=== PATIENT | female | born 1975 | race Hispanic/Latino ===

== ENCOUNTER 2018-07-26 16:21 | Emergency (ER) | payer SELFPAY ==
[2018-07-26 16:53] LABS: Hemoglobin 7.5 g/dL (12.0-16.0); Mean Corpuscular HGB CONC 33.8 g/dL (32.0-36.0); Mean Corpuscular Hemoglobin 31.4 pg (27.0-31.0); Mean Platelet Volume 6.4 fL (7.4-10.4); Platelet Count 447 thou/uL (130-400); RBC Distribution Width 12.4 % (11.5-14.5); Red Blood Cell (RBC) Count 2.38 mill/uL (4.20-5.40); White Blood Cell (WBC) Count 14.5 thou/uL (4.8-10.8)
[2018-07-26 17:07] LABS: #Eosinphils 0.1 thou/uL (0.0-0.7); #Monocytes 0.7 thou/uL (0.11-0.59); #Neutrophils 10.7 thou/uL (1.40-6.50); %Basophils 0.1 % (0.0-1.0); %Eosinophils 0.6 % (0.0-10.0); %Lymphocytes 20.8 % (21.0-51.0); %Monocytes 4.5 % (0.0-10.0); %Neutrophils 74.1 % (42.0-75.0); MDiff Complete? YES; PLT Morphology Comment Appears Increased; Polychromasia MODERATE = 3-4 cells (100X) (0-2/hpf)
[2018-07-26 17:17] LABS: ALT (SGPT) 15 U/L (8-55); AST (SGOT) 14 U/L (5-34); Albumin 4.2 g/dL (3.5-5.0); Alkaline Phosphatase 79 U/L (40-150); Anion Gap 11 mmol/L (10-20); BUN (Urea Nitrogen) 14 mg/dL (7.0-18.7); Bilirubin, Total 0.6 mg/dL (0.2-1.2); Calc. Creatinine Clearance 0 mL/min (70-130); Calcium 9.1 mg/dL (7.8-10.44); Carbon Dioxide 23 mmol/L (22-29); Chloride 105 mmol/L (98-107); Estimated GFR-MDRD 78; Globulin 3.3 g/dL (2.4-3.5); Glucose 256 mg/dL (70-105); Potassium 3.8 mmol/L (3.5-5.1); Protein, Total 7.5 g/dL (6.0-8.3); Sodium 135 mmol/L (136-145)
[2018-07-26 18:44] LABS: Acetaminophen Less than 6.0 mcg/mL (10.0-30.0); Alcohol Less than 10 mg/dL (Less than 10); Salicylate Less than 8.0 mg/dL (15.0-30.0)
[2018-07-26 18:55] LABS: Bilirubin Negative (Negative); Blood, Urine Large (Negative); Clarity CLOUDY (Clear); Glucose, Urine (Dipstick) >=1000 mg/dL (Negative); Leukocyte Small (Negative); Nitrite Negative (Negative); Pregnancy Test - Urine (BHCG) Negative (Negative); Pregu Control Bar Appear? YES (CONTROL BAR); Protein, Urine (Dipstick) Trace mg/dL (Neg-Trace); Specific Gravity 1.031 (1.002-1.036); Specific Gravity, Urine 1.031 (1.002-1.036); pH, Urine 5.5 (5.0-9.0)
[2018-07-26 18:58] LABS: Bacteria/HPF 2+ HPF (None Seen); Squamous Epithelial None Seen HPF (0-3)
[2018-07-26 19:01] LABS: Pathc Cast-AUWi Flag 5.08 (0-2.49); Pregu Control Background? CLEAR/WHITE (CLR/WHITE); Yeast-AUWi Flag 740.2 (0-25.0)
[2018-07-26 19:04] LABS: Amphetamine Not Detected (NotDetected); Barbiturates Screen Not Detected (NotDetected); Benzodiazepine Screen Not Detected (NotDetected); Cocaine Metabolite Screen Not Detected (NotDetected); Medtox Control Line Valid? VALID (VALID); Medtox Reader # READER 1; Methadone Not Detected (NotDetected); Methamphetamine Not Detected (NotDetected); Opiate Screen Not Detected (NotDetected); Oxycodone Screen Not Detected (NotDetected); Phencyclidine (PCP) Not Detected (NotDetected); THC/Cannabinoid Screen Detected (NotDetected); Tricyclic Screen Not Detected (NotDetected)
[2018-07-26 19:14] LABS: Hyaline Casts/LPF 0-3 HYALINE CAST LPF (0-3 Hyaline); Other Casts/LPF None Seen LPF (0-3 Hyaline); Yeast-All Forms 4+ HPF (None Seen)
--- NOTE | 2018-07-26 19:52 | ULT ---
PELVIC SONOGRAM TRANSABDOMINAL AND TRANSVAGINAL IMAGING WITH DUPLEX EVALUATION 07/26/18 HISTORY: Dysmenorrhea. Pelvic pain. FINDINGS: The urinary bladder is decompressed. The uterus has a heterogeneous echotexture and is 7.1 cm. Slight expansion of the lower uterine segment by a small cluster of cysts. No free fluid is apparent within the pelvis. Right ovary is 2.8 cm. A dominant 2.9 cm cystic structure at the right ovary contains an eccentric ro unded component. Left ovary is 2.7 cm. Good color and spectral doppler flow within each ovary. IMPRESSION: Small cluster of cystic fluid within the lower uterine segment. No evidence of intrauterine gestation . Complex cyst right ovary, 2.9 cm. This could represent a complex follicle. Clinical correlation regar ding other findings of ectopic is required. Please consider continued clinical and sonograp hic followup. POS: LUISA
[2018-07-26] MEDS ORDERED: cefTRIAXone\\ROCEPHIN 1 GM VIAL ONE (19:58)
[2018-07-26] MEDS ORDERED: Ondansetron HCl/PF 4 MG/2 ML Vial ONE (20:48)
[2018-07-26] MEDS ORDERED: Tranexamic Acid 650 MG TAB PO SCH (23:00)
[2018-07-27 06:02] LABS: #Eosinphils 0.1 thou/uL (0.0-0.7); #Lymphocytes 2.7 thou/uL (1.20-3.40); #Monocytes 0.7 thou/uL (0.11-0.59); %Basophils 0.3 % (0.0-1.0); %Lymphocytes 25.8 % (21.0-51.0); %Monocytes 6.5 % (0.0-10.0); %Neutrophils 66.4 % (42.0-75.0); Hemoglobin 9.2 g/dL (12.0-16.0); Mean Corpuscular Hemoglobin 31.4 pg (27.0-31.0); Mean Corpuscular Volume 92.3 fL (78.0-98.0); Mean Platelet Volume 7.1 fL (7.4-10.4); Platelet Count 257 thou/uL (130-400); RBC Distribution Width 12.8 % (11.5-14.5); Red Blood Cell (RBC) Count 2.92 mill/uL (4.20-5.40); White Blood Cell (WBC) Count 10.6 thou/uL (4.8-10.8)
[2018-07-27] MEDS ORDERED: Tranexamic Acid 650 MG TAB PO SCH ×2 (07:15→21:00)
[2018-07-27] MEDS ORDERED: Ondansetron ODT 4 MG TAB ONE (18:49)
[2018-07-27 19:01] LABS: Hemoglobin 10.4 g/dL (12.0-16.0); Mean Corpuscular HGB CONC 34.4 g/dL (32.0-36.0); Mean Corpuscular Hemoglobin 31.4 pg (27.0-31.0); Mean Corpuscular Volume 91.1 fL (78.0-98.0); Mean Platelet Volume 6.3 fL (7.4-10.4); Platelet Count 380 thou/uL (130-400); RBC Distribution Width 12.8 % (11.5-14.5); Red Blood Cell (RBC) Count 3.33 mill/uL (4.20-5.40)
[2018-07-27 19:21] LABS: Band 2 % (5-11); Basophilic Stippling SLIGHT = 1-2 cells (100X) (None Seen); Lymphocytes 21 % (21-51); MDiff Complete? YES; Monocytes 6 % (0-10); Neutrophil 70 % (42-75); Nucleated RBC 1 % (0); Ovalocytes SLIGHT = 2-5 cells (100X) (0-1/hpf); PLT Morphology Comment Appears Adequate; Polychromasia MODERATE = 3-4 cells (100X) (0-2/hpf); White Blood Cell (WBC) Count 9.2 thou/uL (4.8-10.8)
== END 2018-07-26 19:43 | disposition home or self-care (01) ==
LOC: ERS 16:21
DX: N93.8 Other specified abnormal uterine and vaginal bleeding (principal); R45.851 Suicidal ideations; N39.0 Urinary tract infection, site not specified; E11.9 Type 2 diabetes mellitus without complications; F32.9 Major depressive disorder, single episode, unspecified; F41.9 Anxiety disorder, unspecified
CPT/HCPCS: 36415; 36430; 76856; 80053; 80306; 80307; 81003; 81015; 81025; 84443; 85025; 86850; 86900; 86901; 87077; 87086; 96361; 96365; 96375; J0696; J2405; P9016

== ENCOUNTER 2018-10-25 04:11 | Inpatient (IN) | payer OTHER, SELFPAY ==
[2018-10-25] MEDS ORDERED: HYDROcodone/Acetaminophen 5/325 mg Tablet ONE (05:12)
[2018-10-25 05:15] LABS: ALT (SGPT) 11 U/L (8-55); AST (SGOT) 21 U/L (5-34); Albumin 3.9 g/dL (3.5-5.0); Alkaline Phosphatase 144 U/L (40-150); Anion Gap 19 mmol/L (10-20); BUN (Urea Nitrogen) 21 mg/dL (7.0-18.7); Bilirubin, Total 0.8 mg/dL (0.2-1.2); Calc. Creatinine Clearance 0 mL/min (70-130); Calcium 9.8 mg/dL (7.8-10.44); Carbon Dioxide 19 mmol/L (22-29); Chloride 97 mmol/L (98-107); Estimated GFR-MDRD 76; Globulin 5.5 g/dL (2.4-3.5); Glucose 195 mg/dL (70-105); Potassium 3.9 mmol/L (3.5-5.1); Protein, Total 9.4 g/dL (6.0-8.3); Sodium 131 mmol/L (136-145)
[2018-10-25 05:23] LABS: #Eosinphils 0.1 thou/uL (0.0-0.7); #Monocytes 0.8 thou/uL (0.11-0.59); #Neutrophils 13.9 thou/uL (1.40-6.50); %Basophils 0.1 % (0.0-1.0); %Eosinophils 0.6 % (0.0-10.0); %Lymphocytes 11.8 % (21.0-51.0); %Monocytes 4.7 % (0.0-10.0); %Neutrophils 82.8 % (42.0-75.0); Hemoglobin 11.1 g/dL (12.0-16.0); MDiff Complete? YES; Mean Corpuscular HGB CONC 30.9 g/dL (32.0-36.0); Mean Corpuscular Hemoglobin 22.5 pg (27.0-31.0); Mean Corpuscular Volume 72.7 fL (78.0-98.0); Mean Platelet Volume 8.1 fL (7.4-10.4); Microcytosis SLIGHT = 6-15 cells (100X) (0-5/hpf); Platelet Count 465 thou/uL (130-400); Platelet Morphology Comment Appears Adequate; RBC Distribution Width 17.9 % (11.5-14.5); Red Blood Cell (RBC) Count 4.93 mill/uL (4.20-5.40); White Blood Cell (WBC) Count 16.8 thou/uL (4.8-10.8)
--- NOTE | 2018-10-25 06:19 | PDOC.FPRHP ---
- History of Present Illness Chief Complaint: L foot wound/pain History of Present Illness: 43 yo F with PMH T2DM and previous diabetic foot wounds presents for L foot wound with purulent drainage. 1 month history of wound, pt has been applying peroxide for wound care. 5 days ago, foot was more swollen and rubbed against her shoe causing the current wounds. Has purulent drainage, surrounding erythema. Foot is painful and pt has done minimal weight bearing. Denies fever/ chills, SOB, CP. ED Course: Vershire, vanc, 1L IVF - Allergies/Adverse Reactions Allergies Allergy/AdvReac Type Severity Reaction Status Date / Time No Known Allergies Allergy Verified 03/06/14 02:42 - Home Medications Medication Instructions Recorded Confirmed Type No Known 10/25/18 10/25/18 History - History PMHx: T2DM, anxiety/depression PSHx: tonsillectomy FHx: grandpa-DM, CAD, CKD. grandmother-anemia. Social: Denies tobacco and alcohol use. 3 years smoker as teenager. Current marijuana user. - Review of Systems General: denies: fever/chills ENT: denies: nasal congestion Respiratory: denies: cough, shortness of breath Cardiovascular: denies: chest pain, palpitation - Vital signs BP: 104/71 HR: 91 RR: 18 Tmax: 98.6 Pox: 99% on RA Wt: 72 kg - Physical Exam Constitutional: awake, alert and oriented, well developed HEENT: normocephalic and atraumatic, MMM, oropharynx clear Heart: RRR, normal S1/S2 Lungs: CTAB, no respiratory distress, no rales/rhonchi Abdomen: soft, non-tender, bowel sounds present Neurological: no focal deficit Skin: good turgor, capillary refill <2 seconds -Skin: L foot erythema borders marked with pen, 2 - 1cm ulcers with white/yellow purulent drainage Heme/Lymphatic: no unusual bruising or bleeding Psychiatric: normal mood and affect FMR H&P: Results - Labs Result Diagrams: 10/25/18 04:40 10/25/18 04:40 Lab results: WBC 16.8 thou/uL (4.8-10.8) H 10/25/18 04:40 Hgb 11.1 g/dL (12.0-16.0) L 10/25/18 04:40 Hct 35.9 % (36.0-47.0) L 10/25/18 04:40 MCV 72.7 fL (78.0-98.0) L 10/25/18 04:40 Plt Count 465 thou/uL (130-400) H 10/25/18 04:40 Neutrophils % 82.8 % (42.0-75.0) H 10/25/18 04:40 ESR Westergren 130 mm/hr (Less than 20) 10/25/18 04:40 Sodium 131 mmol/L (136-145) L 10/25/18 04:40 Potassium 3.9 mmol/L (3.5-5.1) 10/25/18 04:40 Chloride 97 mmol/L (98-107) L 10/25/18 04:40 Carbon Dioxide 19 mmol/L (22-29) L 10/25/18 04:40 BUN 21 mg/dL (7.0-18.7) H 10/25/18 04:40 Creatinine 0.83 mg/dL (0.6-1.1) 10/25/18 04:40 Glucose 195 mg/dL (70-105) H 10/25/18 04:40 Lactic Acid 1.5 mmol/L (0.5-2.2) 10/25/18 04:40 Calcium 9.8 mg/dL (7.8-10.44) 10/25/18 04:40 Total Bilirubin 0.8 mg/dL (0.2-1.2) 10/25/18 04:40 AST 21 U/L (5-34) 10/25/18 04:40 ALT 11 U/L (8-55) 10/25/18 04:40 Alkaline Phosphatase 144 U/L (40-150) 10/25/18 04:40 C-Reactive Protein 27.06 mg/dL (= or < 0.5) H 10/25/18 04:40 Serum Total Protein 9.4 g/dL (6.0-8.3) H 10/25/18 04:40 Albumin 3.9 g/dL (3.5-5.0) 10/25/18 04:40 FMR H&P: A/P - Problem List (1) Sepsis Current Visit: Yes Status: Acute Code(s): A41.9 - SEPSIS, UNSPECIFIED ORGANISM (2) Cellulitis Current Visit: Yes Status: Acute Code(s): L03.90 - CELLULITIS, UNSPECIFIED (3) Diabetic foot infection Current Visit: Yes Status: Acute Code(s): E11.628 - TYPE 2 DIABETES MELLITUS WITH OTHER SKIN COMPLICATIONS; L08.9 - LOCAL INFECTION OF THE SKIN AND SUBCUTANEOUS TISSUE, UNSP (4) Microcytic anemia Current Visit: Yes Status: Acute Code(s): D50.9 - IRON DEFICIENCY ANEMIA, UNSPECIFIED (5) Hyponatremia Current Visit: Yes Status: Acute Code(s): E87.1 - HYPO-OSMOLALITY AND HYPONATREMIA (6) Diabetes mellitus Current Visit: No Status: Acute Code(s): E11.9 - TYPE 2 DIABETES MELLITUS WITHOUT COMPLICATIONS - Plan 43 yo F with PMH T2DM and diabetic foot wounds presents with R foot osteomyelitis. Sepsis 2/2 purulent cellulitis of L diabetic foot wound with concern for ostoemyelitis -CRP and ESR elevated, initially tachycardic, afebrile -XR did not show obvious lytic lesions, official read pending -WBC 16 -Continue IV vanc, started in ED 10/25 -wound culture pending - ordered MRI to r/o osteo considering onset of purulence 5 days ago. Will consult specialists as necessary pending this result. - IVF @ 110 Hyponatremia, mild -Continue IVF and recheck BMP in am DM2 - not taking any meds at home - will check A1c Microcytic anemia - has history of heavy vaginal bleeding earlier this year requiring blood transfusions. However also has family hx anemia - orderd iron studies as well as retic and smear Anxiety/depression Diet: NPO Ppx: Lovenox Dispo: admit to inpatient medical floor FMR H&P: Upper Level - Pertinent history 43 y/o F w/ PMHx of DM presents for eval of L-foot wound w/ worsening pain and redness over the past 5 days. Reports hx of diabetic foot ulcers in the past. Reports purulent drainage. Has not been on any PO abx for this in the outpatient setting. In the ER patient received 1L NS, 1 Vershire, and IV Vancomycin. - Pertinent findings Vitals per Library Serials Assistant Note Pertinent PE findings include two approx.. 1 cm open wounds on dorsal aspect of L-foot just proximal to 4th digit w/ surrounding erythema and swelling to ankle WBC 16.8 Hgb 11.1 MCV 72.7 Na 131 Chl 97 CO2 19 BUN 21 Cr 0.83 CRP 27.06 ESR - 130 LA 1.5 Foot X-ray - No overt lytic lesions identified. NAD - Plan Date/Time: 10/25/18 0618 Madie Cortés MD, have evaluated this patient and agree with findings/plan as outlined by internet and e business project manager resident. Pertinent changes/additions are listed here. 43 y/o F w/: 1) Sepsis 2/2 Purulent Cellulitus vs Osteomyelitis - BCx and WCx obtained in the ER - Elevated CRP concerning for possible osteomyelitis. Cont. w/ IV vancomycin and will consider ID consult for likely need of termite inspector IV abx upon eventual discharge - W/ negative radiographs will obtain MRI for futher eval of possible osteo - Will plan to consult ortho if needed for bone bx to confirm dx and guide antimicrobial therapy - Margins of erythema marked in ED. Will consult wound care - LA WNL - Strict I/Os and cont. w/ IVF w/ LR - Will attempt to keep BG <180 in setting of acute infection 2) Microcytic Anemia - Will obtain iron studies and peripheral smear w/ retic count to further evaluate 3) Other chronic medical problems per internet and e business project manager note Addendum - Attending - Attending Attestation Date/Time: 10/25/18 0883 I personally evaluated the patient and discussed the management with Dr. Sam I agree with the History, Examination, Assessment and Plan documented above with any addition or exceptions noted below.43 yo non compliant diabetic female admitted with Sepsis secondary to diabetic left foot infection markedly swollen , erythematous and tender dorsalis pedal pulse palpable with active purulent drainage to dorsum proximal left great toe. Rec consider broader AB coverage will need wound and surgical consultation and agree with MRI to evaluate for osteomyelitis.
[2018-10-25] MEDS ORDERED: Ondansetron PF 4 MG/2 ML Vial IVP PRN (06:52)
[2018-10-25] MEDS ORDERED: Ondansetron ODT 4 MG TAB SL PRN (06:52)
[2018-10-25] MEDS ORDERED: Acetaminophen 325 MG TAB PO PRN (06:52)
[2018-10-25 07:36] VITALS: BMI 26.6
[2018-10-25] MEDS: Sodium Chloride 0.9% 1,000 ML IV SCH ×2 (08:02→12:34)
[2018-10-25] MEDS ORDERED: Ondansetron ODT 4 MG TAB PO PRN (08:03)
[2018-10-25 08:31] LABS: Reticulocyte Count 1.7 % (0.5-1.5)
[2018-10-25 08:32] LABS: Hemoglobin A1c 9.5 % (4.0-6.0)
--- NOTE | 2018-10-25 08:49 | RAD ---
LEFT FOOT 3 VIEWS: COMPARISON: 06/23/2013. HISTORY: Left foot swelling, erythema. Open wound with purulent drainage. FINDINGS: There is soft tissue swelling. There is an ulcer on the dorsum of the foot at the level of the mid f oot. There does not appear to be a destructive or erosive process involving the osseous structures o f the left foot. There is degenerative change along the 1st interphalangeal joint space and the 1st metatarsophalangeal joint space. The joint space height is preserved. However, there is osteophyte formation. Possible erosive changes involving the articular surface of the distal phalanx of the 1st digit. IMPRESSION: 1. Presumed degenerative changes involving the 1st digit as described above. 2. Soft tissue swelling along with ulceration involving the dorsal mid foot soft tissues. There is no radiographic evidence of osteomyelitis. If there is concern for cellulitis, further evaluation w ith MRI if clinically warranted. POS: LUISA
[2018-10-25 08:53] LABS: Iron 14 ug/dL (50-170); Iron Binding Capacity, Total 324 mcg/dL (265-497)
[2018-10-25 09:12] LABS: Hemoglobin 10.3 g/dL (12.0-16.0); Mean Corpuscular HGB CONC 29.4 g/dL (32.0-36.0); Mean Corpuscular Hemoglobin 21.7 pg (27.0-31.0); Mean Corpuscular Volume 73.7 fL (78.0-98.0); Mean Platelet Volume 7.9 fL (7.4-10.4); Platelet Count 438 thou/uL (130-400); RBC Distribution Width 17.7 % (11.5-14.5); Red Blood Cell (RBC) Count 4.76 mill/uL (4.20-5.40); White Blood Cell (WBC) Count 14.6 thou/uL (4.8-10.8)
[2018-10-25 09:32] LABS: Band 2 % (5-11); Eosinophils 1 % (0-10); Hypochromia SLIGHT = 6-15 cells (100X) (0-5/hpf); Lymphocytes 22 % (21-51); MDiff Complete? YES; Microcytosis SLIGHT = 6-15 cells (100X) (0-5/hpf); Monocytes 3 % (0-10); Neutrophil 69 % (42-75); Platelet Morphology Comment Appears Increased; Polychromasia SLIGHT = 2-3 cells (100X) (0-2/hpf); Reactive Lymphocytes 2 % (0-10); Rouleaux Formation SLIGHT = 1-5 cells (100X) (None Seen)
[2018-10-25] MEDS: Lactated Ringer's 1,000 ML IV SCH ×2 (09:32→20:18)
[2018-10-25] MEDS: Enoxaparin Sodium 40 MG/0.4 ML SYRINGE SC SCH (09:33)
[2018-10-25] MEDS: Ibuprofen 600 MG TAB PO SCH ×3 (09:33→20:06)
[2018-10-25] MEDS ORDERED: Gadobenate Dimeglumine 529 MG/1 ML (20ML VIAL) ONE (11:48)
[2018-10-25] MEDS ORDERED: Dextrose 50% Abboject 50 ML SYRINGE SLOW IVP PRN (13:30)
[2018-10-25] MEDS ORDERED: HumaLOG 300 UNITS/3 ML VIAL SC PRN ×2 (13:30)
[2018-10-25] MEDS ORDERED: Dextrose 5% in Water 1,000 ML IV PRN (13:30)
[2018-10-25] MEDS ORDERED: cefTRIAXone\\ROCEPHIN 1 GM in Sodium Chloride 0.9% 100 ML IVPB SCH (14:00)
--- NOTE | 2018-10-25 15:42 | MRI ---
MRI OF THE LEFT FOOT PERFORMED WITH AND WITHOUT CONTRAST ENHANCEMENT: History: Patient presents with left foot swelling and erythema with open wound with purulent drainage . Comparison: Plain film examination, 10-25-18. FINDINGS: There is marked soft tissue edema changes on the dorsum of the foot. There is an ulcer of wound seen on the dorsal side near the first metatarsal phalangeal joint with more pronounced edema change in th is region with a tiny cavity present which appears to point to drainage site. The marrow signal hannon e within the metatarsal is normal. There is some minimal increased signal change on the STIR sequence associated with the proximal phalanx which also shows minimal enhancement. Incidental note is made of a 5-6 mm exophytic area along the plantar surface of the flexor halitus lo ngus tendon, just proximal to the sesamoid level. This is not felt to be related to acute process. It may represent some type of chronic change possibly related to old tenosynovitis change or some type of synovial cyst, not felt to be of acute significance. IMPRESSION: Marked edema changes with an open wound on the dorsum of the foot. This is near the first metatarsal phalangeal joint with some minimal fluid density seen tracking superficially dorsal to the first meta tarsal without any definite abscess collection. This is probably the underlying etiology of the drain age. There is some edema change and enhancement associated with the proximal phalanx of the great toe . I do not see any bony destructive change although this could indicate early osteomyelitis. I would favor that this just represents some reactive bony change. There is some similar but very minimal delfino nges also seen in the first metatarsal neck, more on the plantar side. Again, more likely favored to be reactive in nature. POS: LUISA
[2018-10-25] MEDS ORDERED: Heparin 1,000 UNITS/ML VIAL ONE ×2 (16:16→19:45)
[2018-10-25] MEDS: Vancomycin HCl 1 GM in Premix Bag 1 BAG IVPB SCH (16:49)
[2018-10-25] MEDS: Ferrous Sulfate 325 MG TAB PO SCH (16:50)
[2018-10-25] MEDS: cefTRIAXone\\ROCEPHIN 1 GM in Sodium Chloride 0.9% 100 ML IVPB SCH (20:08)
[2018-10-25] MEDS: Acetaminophen 325 MG TAB PO PRN (21:51)
[2018-10-26] MEDS: traMADol HCl 50 MG TAB PO PRN (00:15)
[2018-10-26] MEDS ORDERED: HYDROcodone/Acetaminophen 5/325 mg Tablet PO SCH (03:15)
[2018-10-26] MEDS: Ibuprofen 600 MG TAB PO SCH ×4 (03:21→20:10)
[2018-10-26] MEDS: Vancomycin HCl 1 GM in Premix Bag 1 BAG IVPB SCH ×2 (05:21→18:32)
[2018-10-26 07:13] LABS: #Basophils 0.1 thou/uL (0.0-0.2); #Eosinphils 0.2 thou/uL (0.0-0.7); #Lymphocytes 1.1 thou/uL (1.20-3.40); #Monocytes 1.1 thou/uL (0.11-0.59); #Neutrophils 11.8 thou/uL (1.40-6.50); %Basophils 0.8 % (0.0-1.0); %Eosinophils 1.2 % (0.0-10.0); %Lymphocytes 7.7 % (21.0-51.0); %Monocytes 7.6 % (0.0-10.0); %Neutrophils 82.8 % (42.0-75.0); Mean Corpuscular HGB CONC 30.5 g/dL (32.0-36.0); Mean Corpuscular Hemoglobin 22.3 pg (27.0-31.0); Mean Corpuscular Volume 73.1 fL (78.0-98.0); Mean Platelet Volume 8.1 fL (7.4-10.4); Platelet Count 344 thou/uL (130-400); RBC Distribution Width 17.5 % (11.5-14.5); Red Blood Cell (RBC) Count 4.01 mill/uL (4.20-5.40); White Blood Cell (WBC) Count 14.3 thou/uL (4.8-10.8)
[2018-10-26 07:29] LABS: Anion Gap 15 mmol/L (10-20); BUN (Urea Nitrogen) 19 mg/dL (7.0-18.7); Calc. Creatinine Clearance 110 mL/min (70-130); Calcium 8.9 mg/dL (7.8-10.44); Carbon Dioxide 19 mmol/L (22-29); Chloride 103 mmol/L (98-107); Estimated GFR-MDRD 85; Glucose 190 mg/dL (70-105); Potassium 3.8 mmol/L (3.5-5.1); Sodium 133 mmol/L (136-145)
[2018-10-26] MEDS ORDERED: metFORMIN XR 500 MG TAB PO SCH (08:00)
--- NOTE | 2018-10-26 08:14 | PDOC.FM ---
- Subjective Subjective: CC: Foot pain HPI: Still waiting to see podiatry. Reports foot pain overnight but states swelling is better. No other concerns. - Objective Vital Signs & Weight: Vital Signs (12 hours) Temp Pulse Resp BP Pulse Ox 10/26/18 04:00 98.7 F 97 20 105/67 100 10/26/18 00:00 98.8 F 84 20 101/65 100 Weight Admit Weight 70.307 kg Weight 70.307 kg Result Diagrams: 10/26/18 06:27 10/26/18 06:27 Radiology Reviewed by me: Yes (superficial swelling left foot. ) Phys Exam - Physical Examination Constitutional: NAD HEENT: moist MMs, sclera anicteric Respiratory: no wheezing, clear to auscultation bilateral Cardiovascular: RRR, no significant murmur Gastrointestinal: soft, non-tender Musculoskeletal: no edema Neurological: non-focal, moves all 4 limbs Psychiatric: normal affect, A&O x 3 Skin: cap refill <2 seconds Deviation from normal: erythema inside samuel. Purulent drainage from both ulcers left foot. Dx/Plan (1) Osteomyelitis Code(s): M86.9 - OSTEOMYELITIS, UNSPECIFIED Status: Acute (2) Diabetic foot infection Code(s): E11.628 - TYPE 2 DIABETES MELLITUS WITH OTHER SKIN COMPLICATIONS; L08.9 - LOCAL INFECTION OF THE SKIN AND SUBCUTANEOUS TISSUE, UNSP Status: Acute (3) Microcytic anemia Code(s): D50.9 - IRON DEFICIENCY ANEMIA, UNSPECIFIED Status: Acute (4) Sepsis Code(s): A41.9 - SEPSIS, UNSPECIFIED ORGANISM Status: Acute (5) Diabetes mellitus Code(s): E11.9 - TYPE 2 DIABETES MELLITUS WITHOUT COMPLICATIONS Status: Acute Qualifiers: Diabetes mellitus type: type 2 Diabetes mellitus termite helper insulin use: without long-term use Diabetes mellitus complication status: with skin complications Diabetes mellitus complication detail: with foot ulcer Qualified Code(s): E11.621 - Type 2 diabetes mellitus with foot ulcer; L97.509 - Non-pressure chronic ulcer of other part of unspecified foot with unspecified severity - Plan Plan: Sepsis (resolved) 2/2 Possible osteomyelitis of L diabetic foot wound - MRI concerning for early osteomyelitis and underlying abscess - Podiatry consulted for debridement, awaiting further recommendations - ID consulted for antibiotic recommendations - Vanc/Rocephin day 2- rocephin started due to Gram stain showing gram negative and gram variable rods. - Vital stable, afebrile Hyponatremia, mild -improved. D/C IV fluids DM2 -A1c 9.5 - Restarted metformin XR BID to help with GI side effects and glyburide 2.5 mg. Has not received dose yet - monitor for 24 hrs before adjusting - SSI available but not needed yet. - stressed importance of compliance. Microcytic anemia - Appears to be related to iron deficiency/ acute blood loss from heavy menstrual bleeding. - retic count appropriate, iron low - Start BID iron supplementation Anxiety/depression - outpatient eval. Dispo pending clinical course and specialist recs. Addendum - Attending - Attending Attestation Date/Time: 10/26/18 [id number] I personally evaluated the patient and discussed the management with Dr. Villasenor I agree with the History, Examination, Assessment and Plan documented above with any addition or exceptions noted below.Wound need debridement will consult with Podiatry or General Surgery.
[2018-10-26] MEDS: Lactated Ringer's 1,000 ML IV SCH ×2 (08:21→17:42)
[2018-10-26] MEDS: Enoxaparin Sodium 40 MG/0.4 ML SYRINGE SC SCH (08:22)
[2018-10-26] MEDS: glyBURIDE 2.5 MG TAB PO SCH (08:22)
[2018-10-26] MEDS: Ferrous Sulfate 325 MG TAB PO SCH ×2 (08:23→17:42)
[2018-10-26] MEDS: metFORMIN XR 500 MG TAB PO SCH ×2 (09:01→20:11)
[2018-10-26] MEDS ORDERED: Adacel (T-DAP) 0.5 ML SYRINGE IM ONE (14:00)
[2018-10-26 16:53] LABS: Vancomycin, Trough 11.2 ug/mL
[2018-10-26] MEDS: Vancomycin HCl 1.25 GM in Sodium Chloride 0.9% 250 ML 250 ML IVPB SCH (17:42)
[2018-10-26] MEDS: cefTRIAXone\\ROCEPHIN 1 GM in Sodium Chloride 0.9% 100 ML IVPB SCH (20:10)
[2018-10-26] MEDS: HYDROcodone/Acetaminophen 5/325 mg Tablet PO PRN (22:04)
--- NOTE | 2018-10-27 00:33 | CON ---
DATE OF CONSULTATION: 10/26/2018 REASON FOR CONSULTATION: Left first toe inflammatory process. HISTORY OF PRESENT ILLNESS: This is a 43-year-old female with history of type 2 diabetes, who has had previous complications in the right foot related to her neuropathy and type 2 diabetes mellitus, now presents with open wound of the left first toe dorsal aspect MPJ site with erythema and drainage. The patient is going for surgical debridement under Dr. Villeda's care I believe. Her MRI showed marked edema with an open wound at dorsal aspect of the foot near the first MPJ with fluid density tracking to the first metatarsal, but no definite abscess collection, some enhancement associated with the proximal phalanx of the great toe, but no bony destructive change. No headaches, visual symptoms, sore throat, odynophagia, dysphagia, no cough, sputum production, or chest pain. No abdominal pain or diarrhea. No genitourinary symptoms. No other joint symptoms. No neurological symptoms. PAST MEDICAL HISTORY: Type 2 diabetes, neuropathy. PAST SURGICAL HISTORY: Tonsillectomy. FAMILY HISTORY: Type 2 diabetes. SOCIAL HISTORY: She works as a senior marketing associate. Quit smoking many years ago. ALLERGIES: NONE. PHYSICAL EXAMINATION: VITAL SIGNS: T-max 99.3, blood pressure 106/57, pulse 90 to 104, respirations 18, and O2 saturation 99%. SKIN: We have the dorsal aspect of the right first MPJ and dorsum of the foot with erythema extending all the way to the hindfoot region. There are two round-shaped ulcerations and there is intertriginous maceration between the first and second toes. Mild swelling noted. Pulses are 2+ dorsalis pedis, popliteals are 1+. HEENT: With some element of periorbital edema. Pupils are equal. Oral cavity normal. NECK: Supple. LUNGS: Symmetric, clear breath sounds. HEART: S1, S2. Regular rate. ABDOMEN: Soft, not distended or tender. No ascites. No bladder distention. MUSCULOSKELETAL: No other joint inflammatory process noted. NEUROLOGIC: Nonfocal. LABORATORY DATA: White cell count 14.3, hemoglobin 9, and platelets 344 with 82% neutrophils. Sodium 133 and creatinine 0.75. Lactic acid 1.5. AST 21, ALT 11, and alkaline phosphatase 144. C-reactive protein 27. IMAGING STUDIES: Have been reviewed above. The foot x-ray showed soft tissue swelling with ulceration at dorsal aspect, but no bony changes. ASSESSMENT: Type 2 diabetes with concern for early osteomyelitis of the first proximal phalanx and may be septic arthritis. The patient is going for incision and drainage of the area. Cultures to be taken and then we will define the subsequent antimicrobial therapy modality. Job ID: [id number]
[2018-10-27] MEDS: Acetaminophen 325 MG TAB PO PRN (00:46)
[2018-10-27] MEDS: traMADol HCl 50 MG TAB PO PRN ×2 (00:46→08:34)
[2018-10-27] MEDS: Ibuprofen 600 MG TAB PO SCH ×4 (02:44→21:17)
[2018-10-27] MEDS: Lactated Ringer's 1,000 ML IV SCH ×3 (02:44→21:35)
[2018-10-27] MEDS: Vancomycin HCl 1.25 GM in Sodium Chloride 0.9% 250 ML 250 ML IVPB SCH ×2 (05:54→18:43)
[2018-10-27 07:07] LABS: #Eosinphils 0.3 thou/uL (0.0-0.7); #Lymphocytes 0.9 thou/uL (1.20-3.40); #Monocytes 0.8 thou/uL (0.11-0.59); #Neutrophils 10.5 thou/uL (1.40-6.50); %Eosinophils 2.1 % (0.0-10.0); %Lymphocytes 7.4 % (21.0-51.0); %Monocytes 6.5 % (0.0-10.0); Hemoglobin 8.3 g/dL (12.0-16.0); Mean Corpuscular HGB CONC 30.4 g/dL (32.0-36.0); Mean Corpuscular Hemoglobin 22.2 pg (27.0-31.0); Mean Platelet Volume 7.8 fL (7.4-10.4); Platelet Count 351 thou/uL (130-400); RBC Distribution Width 17.1 % (11.5-14.5); Red Blood Cell (RBC) Count 3.72 mill/uL (4.20-5.40); White Blood Cell (WBC) Count 12.5 thou/uL (4.8-10.8)
[2018-10-27 07:27] LABS: Anion Gap 11 mmol/L (10-20); BUN (Urea Nitrogen) 16 mg/dL (7.0-18.7); Calc. Creatinine Clearance 121 mL/min (70-130); Calcium 8.8 mg/dL (7.8-10.44); Carbon Dioxide 23 mmol/L (22-29); Chloride 104 mmol/L (98-107); Estimated GFR-MDRD Greater than 90; Glucose 176 mg/dL (70-105); Potassium 3.3 mmol/L (3.5-5.1); Sodium 135 mmol/L (136-145)
--- NOTE | 2018-10-27 08:25 | PDOC.FM ---
- Subjective Subjective: Reported pain in foot after exam by gen surg. States norco helps. Denies chills. No other concerns. States she is ready for surgery. - Objective Vital Signs & Weight: Vital Signs (12 hours) Temp Pulse Resp BP Pulse Ox 10/27/18 08:02 98.1 F 80 16 108/63 100 Weight Admit Weight 70.307 kg Weight 70.307 kg Result Diagrams: 10/27/18 05:36 10/27/18 05:36 Phys Exam - Physical Examination Constitutional: NAD HEENT: moist MMs, sclera anicteric Respiratory: no wheezing, clear to auscultation bilateral Cardiovascular: RRR, no significant murmur Gastrointestinal: soft, non-tender Musculoskeletal: no edema, pulses present Neurological: non-focal, moves all 4 limbs Skin: normal turgor Deviation from normal: erythema within samuel. Dx/Plan (1) Osteomyelitis Code(s): M86.9 - OSTEOMYELITIS, UNSPECIFIED Status: Acute (2) Diabetic foot infection Code(s): E11.628 - TYPE 2 DIABETES MELLITUS WITH OTHER SKIN COMPLICATIONS; L08.9 - LOCAL INFECTION OF THE SKIN AND SUBCUTANEOUS TISSUE, UNSP Status: Acute (3) Microcytic anemia Code(s): D50.9 - IRON DEFICIENCY ANEMIA, UNSPECIFIED Status: Acute (4) Sepsis Code(s): A41.9 - SEPSIS, UNSPECIFIED ORGANISM Status: Acute (5) Diabetes mellitus Code(s): E11.9 - TYPE 2 DIABETES MELLITUS WITHOUT COMPLICATIONS Status: Acute Qualifiers: Diabetes mellitus type: type 2 Diabetes mellitus terminal carman insulin use: without terminal carman use Diabetes mellitus complication status: with skin complications Diabetes mellitus complication detail: with foot ulcer Qualified Code(s): E11.621 - Type 2 diabetes mellitus with foot ulcer; L97.509 - Non-pressure chronic ulcer of other part of unspecified foot with unspecified severity - Plan Plan: Sepsis (resolved) 2/2 Possible osteomyelitis of L diabetic foot wound - MRI concerning for early osteomyelitis and underlying abscess - Debridment by general surgery today - ID consulted and awaiting culture from I&D. Will discuss if IV antibiotics likely and if patient will need PICC line. - Vanc/Rocephin day 3- rocephin started due to Gram stain showing gram negative and gram variable rods. - Vital stable, afebrile - CM to arrange outpatient wound care. Hyponatremia, mild DM2 -A1c 9.5 - metformin XR 500 mg BID and glyburide 2.5 mg daily. Will increase metformin tomorrow if no GI symptoms. - Blood glucose much improved. Will continue current regimen. - SSI available but not needed yet. - stressed importance of compliance. Microcytic anemia - Appears to be related to iron deficiency/ acute blood loss from heavy menstrual bleeding. - retic count appropriate, iron low - BID iron supplementation Anxiety/depression - outpatient eval. Dispo pending clinical course and specialist recs. Addendum - Attending - Attending Attestation Date/Time: 10/27/18 8450 I personally evaluated the patient and discussed the management with Dr. Villasenor I agree with the History, Examination, Assessment and Plan documented above with any addition or exceptions noted below.
[2018-10-27] MEDS: Ferrous Sulfate 325 MG TAB PO SCH ×2 (08:30→18:44)
[2018-10-27] MEDS: Potassium Chloride 20 MEQ TAB PO SCH ×2 (08:30→18:44)
[2018-10-27] MEDS: Enoxaparin Sodium 40 MG/0.4 ML SYRINGE SC SCH (08:36)
[2018-10-27] MEDS: metFORMIN XR 500 MG TAB PO SCH ×2 (08:37→21:35)
[2018-10-27] MEDS: glyBURIDE 2.5 MG TAB PO SCH (08:37)
[2018-10-27 12:27] LABS: BHCG - Serum Negative (NEGATIVE); Pregs Control Background? CLEAR/WHITE (CLR/WHITE); Pregs Control Bar Appear? YES (CONTROL BAR)
--- NOTE | 2018-10-27 14:25 | CON ---
DATE OF CONSULTATION: HISTORY OF PRESENT ILLNESS: Ms. Lees is a 43-year-old diabetic woman with recent admission for right foot cellulitis. She states that she had a small wound on the top of her left foot near the metatarsal joint, which she thinks was where her shoe rubbed against it. She treated it with hydrogen peroxide and it healed up, but then after wearing her house shoes all day, she woke up in the middle of the night with severe pain in her foot and was draining from an area above where the first toe had been. After that the first toe opened up and started draining again as well. She has not had any fevers or chills, but the foot is very painful and the drainage has been ongoing and the entire foot now was swollen and red. PAST MEDICAL HISTORY: Diabetes, anemia attributed to heavy periods. PAST SURGICAL HISTORY: Tonsillectomy. FAMILY HISTORY: Diabetes and anemia. SOCIAL HISTORY: She smokes marijuana but no tobacco, alcohol, or other drugs. REVIEW OF SYSTEMS: Ten system review of systems is negative except per HPI. MEDICATIONS: Outpatient medications, none. Inpatient medications: 1. Ceftriaxone. 2. Lovenox. 3. Iron. 4. Sliding scale insulin. 5. Metformin. 6. Potassium. 7. Vancomycin as well as multiple p.r.n.'s. LABORATORY DATA: White count has been elevated in the 14,000 to 16,000 range. Hemoglobin is low at 8.3. Platelets are normal. Electrolytes are unremarkable. Blood glucoses have ranged from 176 to 208. LABORATORY DATA: Foot x-ray did not show any obvious osteomyelitis and MRI showed mostly soft tissue changes without drainable abscess and osteitis favored for the metatarsal and proximal phalanx of the left first toe, although, early osteomyelitis could not be excluded. PHYSICAL EXAMINATION: VITAL SIGNS: The patient has been afebrile. Vital signs have been okay. GENERAL: Reveals a healthy-appearing woman, in no acute distress. She is not flushed or toxic, jaundiced, or icteric. HEENT: Unremarkable. NECK: Supple without lymphadenopathy or thyroid nodules. HEART: Regular in its rate and rhythm without murmurs, rubs, or gallops. LUNGS: Clear to auscultation bilaterally. ABDOMEN: Soft, nontender, and nondistended. EXTREMITIES: She has good pedal pulses in both feet. Left foot is very swollen and tender and there are two open wounds on the dorsum of her first metatarsal area, both with expressible purulence. These probes about a centimeter deep laterally and likely interconnect. No bone is palpable in the wound; however, she was very tender with examination of the foot. NEUROLOGIC: No focal deficits. PSYCHIATRIC: Alert, oriented, and appropriate. ASSESSMENT AND PLAN: Diabetic foot infection with partially drained abscess. I have recommended opening to allow to completely drain and also to examine the underlying tissues. If there is exposed bone on her joint, then left first toe amputation will be necessary; however, the MRI does not suggest that this is the case. She may require wound VAC postoperatively or just daily dressing changes depending on the extent of the wound. She is growing strep from her cultures and is on appropriate antibiotics for this. She is extremely tender with examination of her foot, so I plan to take her to the operating room to debride this wound under anesthesia. All of her questions were answered. Job ID: [id number]
[2018-10-27] MEDS ORDERED: Fentanyl 100 MCG/2 ML VIAL ONE ×4 (14:56→17:24)
[2018-10-27] MEDS ORDERED: Maxitrol 0.1% Opth Oint 3.5 GM TUBE ONE (14:59)
[2018-10-27] MEDS ORDERED: Bupivacaine HCl 0.25%/Epi 0.0005/PF 10 ML VIAL FS ONE ×2 (14:59→15:00)
[2018-10-27] MEDS ORDERED: Bacitracin Zinc Ointment 30 gm TUBE ONE (15:01)
[2018-10-27] MEDS ORDERED: PROPOFOL 200 MG/20 ML VIAL ONE (16:24)
[2018-10-27] MEDS ORDERED: Lidocaine 1% PF 5 ML VIAL ONE (16:24)
[2018-10-27] MEDS ORDERED: Ondansetron PF 4 MG/2 ML Vial ONE (16:24)
--- NOTE | 2018-10-27 18:26 | PDOC.OP ---
Operative Note - Operative Note Operative Note: PROCEDURE: Incision and debridement of extensive left foot abscess and infection DATE OF PROCEDURE: 10/27/2018 SURGEON: Arline Villeda M.D. PREOPERATIVE DIAGNOSES: Left foot infection POSTOPERATIVE DIAGNOSIS: Left foot infection with necrotic extensor hallucis longus and extensive abscess extending along extensor tendons to above the level of the ankle HISTORY: Patient is a diabetic woman with a chronic ulcer on her left first metatarsal who developed worsening swelling and erythema of the foot with ongoing purulent drainage from her ulcer. MRI did not show osteomyelitis or a large fluid collection. Recommendation was made to undergo incision and drainage in the operating room due to severe tenderness. PROCEDURE IN DETAIL: After informed consent was obtained and appropriate preoperative antibiotics continued the patient was taken to the operating room she was placed in supine position and general anesthesia was administered. She was prepped and draped in the standard sterile fashion and local anesthesia infused the skin and subcutaneous tissues overlying the ulcers on her left foot. These were probed and the skin and subcutaneous tissues opened over the ulcers. There was found to be a chronic abscess cavity but there was also pus extruding from the deep tissues over the dorsal foot extending more proximally. The skin was opened in this direction and the patient was found to have a necrotic extensor hallucis longus tendon with abscess extending along this tendon. The abscess communicated across the dorsum of the foot to the level of the lateral malleolus so counterincision was made on that side and the extensor tendons on that side were also noted to have infection surrounding them. They appeared viable however so the infectious tissue surrounding the tendons were debrided and the abscess cavity completely opened to above the level of the ankle. Following complete exposure of the abscess cavities the patient had to 10 cm incisions on the medial and lateral aspects of the dorsum of her foot. Necrotic subcutaneous fat and peritendon was excised back to viable appearing tissues. Hemostasis is obtained using Bovie electrocautery. There was no evidence of extension of the infectious process into the deep tissue spaces between the bones and there is no exposed bone or joint space. The wound care team was called to the operating room for placement of an irrigating wound VAC. The patient was posted for a repeat washout and possible foot amputation on Tuesday due to the extensive nature of the infection. Estimated blood loss was minimal. There are no complications. Specimen is pus for Gram stain and culture.
[2018-10-27] MEDS: Atorvastatin Calcium 40 MG TAB PO SCH (21:17)
[2018-10-27] MEDS: cefTRIAXone\\ROCEPHIN 1 GM in Sodium Chloride 0.9% 100 ML IVPB SCH (21:18)
[2018-10-27] MEDS: HYDROcodone/Acetaminophen 5/325 mg Tablet PO PRN (21:21)
[2018-10-28] MEDS: traMADol HCl 50 MG TAB PO PRN (02:26)
[2018-10-28] MEDS: Ibuprofen 600 MG TAB PO SCH ×4 (02:28→20:34)
[2018-10-28 05:46] LABS: #Eosinphils 0.3 thou/uL (0.0-0.7); #Lymphocytes 1.4 thou/uL (1.20-3.40); #Monocytes 0.8 thou/uL (0.11-0.59); #Neutrophils 7.7 thou/uL (1.40-6.50); %Basophils 0.2 % (0.0-1.0); %Eosinophils 2.5 % (0.0-10.0); %Lymphocytes 14.1 % (21.0-51.0); %Monocytes 7.9 % (0.0-10.0); %Neutrophils 75.3 % (42.0-75.0); Hemoglobin 7.3 g/dL (12.0-16.0); Mean Corpuscular HGB CONC 29.8 g/dL (32.0-36.0); Mean Corpuscular Hemoglobin 22.4 pg (27.0-31.0); Mean Corpuscular Volume 75.2 fL (78.0-98.0); Mean Platelet Volume 7.7 fL (7.4-10.4); Platelet Count 305 thou/uL (130-400); RBC Distribution Width 17.3 % (11.5-14.5); Red Blood Cell (RBC) Count 3.25 mill/uL (4.20-5.40); White Blood Cell (WBC) Count 10.2 thou/uL (4.8-10.8)
[2018-10-28] MEDS ORDERED: Vancomycin HCl 1.5 GM in Sodium Chloride 0.9% 250 ML 300 ML IVPB SCH (06:00)
[2018-10-28 06:02] LABS: Anion Gap 12 mmol/L (10-20); BUN (Urea Nitrogen) 10 mg/dL (7.0-18.7); Calc. Creatinine Clearance 135 mL/min (70-130); Carbon Dioxide 20 mmol/L (22-29); Chloride 106 mmol/L (98-107); Estimated GFR-MDRD Greater than 90; Glucose 157 mg/dL (70-105); Sodium 134 mmol/L (136-145)
[2018-10-28 06:03] LABS: Calcium 8.4 mg/dL (7.8-10.44)
--- NOTE | 2018-10-28 06:04 | PDOC.FM ---
- Subjective Subjective: CC: no concerns HPI: Pain controlled. Denies GI symptoms. No concerned. - Objective MAR Reviewed: Yes Vital Signs & Weight: Vital Signs (12 hours) Temp Pulse Resp BP BP Pulse Ox 10/28/18 04:58 98.6 F 80 93/59 L 100 10/27/18 22:53 99.3 F 109 H 18 111/63 100 10/27/18 22:00 113 H 20 149/87 H 100 10/27/18 21:30 114 H 18 121/78 100 10/27/18 21:00 112 H 18 132/69 100 10/27/18 20:30 105 H 18 131/82 100 10/27/18 19:17 99.4 F 114 H 20 132/69 100 10/27/18 18:40 99.3 F 105 H 16 131/82 100 10/27/18 18:10 99.1 F 108 H 16 127/80 97 Weight Admit Weight 70.307 kg Weight 70.307 kg I&O: 10/26/18 10/27/18 10/28/18 06:59 06:59 06:59 Intake Total 1077 Balance 1077 Result Diagrams: 10/28/18 05:31 10/28/18 05:31 Phys Exam - Physical Examination Constitutional: NAD HEENT: moist MMs, sclera anicteric Neck: no nodes, no JVD Respiratory: no wheezing, clear to auscultation bilateral Cardiovascular: RRR, no significant murmur Gastrointestinal: soft, non-tender, no distention, positive bowel sounds Musculoskeletal: no edema, pulses present Neurological: non-focal, normal sensation, moves all 4 limbs Psychiatric: normal affect, A&O x 3 Skin: no rash, normal turgor Dx/Plan (1) Osteomyelitis Code(s): M86.9 - OSTEOMYELITIS, UNSPECIFIED Status: Acute (2) Diabetic foot infection Code(s): E11.628 - TYPE 2 DIABETES MELLITUS WITH OTHER SKIN COMPLICATIONS; L08.9 - LOCAL INFECTION OF THE SKIN AND SUBCUTANEOUS TISSUE, UNSP Status: Acute (3) Microcytic anemia Code(s): D50.9 - IRON DEFICIENCY ANEMIA, UNSPECIFIED Status: Acute (4) Sepsis Code(s): A41.9 - SEPSIS, UNSPECIFIED ORGANISM Status: Acute (5) Diabetes mellitus Code(s): E11.9 - TYPE 2 DIABETES MELLITUS WITHOUT COMPLICATIONS Status: Acute Qualifiers: Diabetes mellitus type: type 2 Diabetes mellitus buttermaker insulin use: without correction use Diabetes mellitus complication status: with skin complications Diabetes mellitus complication detail: with foot ulcer Qualified Code(s): E11.621 - Type 2 diabetes mellitus with foot ulcer; L97.509 - Non-pressure chronic ulcer of other part of unspecified foot with unspecified severity - Plan Plan: Sepsis (resolved) 2/2 cellulitis with abscess of L diabetic foot wound - MRI concerning for early osteomyelitis and underlying abscess - Debridment by general surgery yesterday. - ID consulted and awaiting culture from I&D. May need PIC line. - Vanc/Rocephin day 4- GS from I&D show GPC in chain and GNR - Vital stable, afebrile - CM to arrange outpatient wound care. will need wound vac due to how extensive abscess was. Hyponatremia, mild DM2 -A1c 9.5 - Increased metformin XR 1000 mg BID. No GI sx yet. - Blood glucose much improved. - SSI available but not needed yet. - stressed importance of compliance. Microcytic anemia - Appears to be related to iron deficiency/ acute blood loss from heavy menstrual bleeding. - retic count appropriate, iron low - BID iron supplementation - Started Daily IV iron while in hospital. Anxiety/depression - outpatient eval. Dispo pending clinical course and specialist recs Addendum - Attending - Attending Attestation Date/Time: 10/28/18 5450 I personally evaluated the patient and discussed the management with Dr. Villasenor I agree with the History, Examination, Assessment and Plan documented above with any addition or exceptions noted below. POD #1 progressing well current Antibiotics pending C&S results.
[2018-10-28] MEDS: Lactated Ringer's 1,000 ML IV SCH (06:11)
[2018-10-28] MEDS: Vancomycin HCl 1.25 GM in Sodium Chloride 0.9% 250 ML 250 ML IVPB SCH (06:12)
[2018-10-28] MEDS: HYDROcodone/Acetaminophen 5/325 mg Tablet PO PRN ×2 (06:30→20:33)
[2018-10-28] MEDS: glyBURIDE 2.5 MG TAB PO SCH (08:08)
[2018-10-28] MEDS: Ferrous Sulfate 325 MG TAB PO SCH ×2 (08:11→17:32)
[2018-10-28] MEDS ORDERED: Iron Sucrose Complex 200 MG in Sodium Chloride 0.9% 250 ML 250 ML IVPB SCH (09:00)
[2018-10-28] MEDS: Lisinopril 2.5 MG TAB PO SCH (09:29)
[2018-10-28] MEDS: Aspirin 81 mg Enteric Coated Tablet PO SCH (09:29)
[2018-10-28] MEDS: metFORMIN XR 500 MG TAB PO SCH ×2 (09:29→17:32)
[2018-10-28] MEDS: Enoxaparin Sodium 40 MG/0.4 ML SYRINGE SC SCH (09:32)
--- NOTE | 2018-10-28 12:35 | PRG ---
DATE OF SERVICE: 10/28/2018 SUBJECTIVE: The patient had surgical debridement of the soft tissue area of involvement was quite extensive all the way to the ankle. There is tenosynovitis, but no evidence of penetration to the deeper regions. She will need complex wound care. She denies any headaches, visual symptoms, sore throat, or dysphagia. No cough or sputum production. OBJECTIVE: VITAL SIGNS: Showed a T-max 99.1, pulse 109, respirations 18, O2 saturation 100, blood pressure normal. GI: No diarrhea. : No genitourinary symptoms. LUNGS: Clear. HEART: S1 and S2. Regular rate. ABDOMEN: Soft. EXTREMITIES: Foot pictures were reviewed and there is red tissue in the medial and lateral aspect extending to the ankle from the dorsal forefoot area. LABORATORY DATA: White cell count down to 10.2, hemoglobin 7.3, platelets 305, 000. Sodium 134, creatinine 0.61. MICROBIOLOGY: With Streptococcus group C and group B isolated, but no other organisms. Blood culture, no growth thus far. ASSESSMENT AND DISCUSSION: Type 2 diabetes and soft tissue involvement of tenosynovitis of right foot, status post irrigation and debridement, which was extended all the way to the ankle. No obvious evidence of osteomyelitis, although early involvement in one of the joints is noted. The specific findings in the MRI indicated enhancement and edema associated with proximal phalanx great toe with no bony destructive changes. I would treat this as early osteo in view of the findings, PICC line, and Rocephin given daily for protracted period of time. Job ID: [id number] [facility]
[2018-10-28 13:44] LABS: INR-International Normal Ratio 1.2; Prothrombin Time 15.6 SEC (12.0-14.7)
[2018-10-28] MEDS: cefTRIAXone\\ROCEPHIN 1 GM in Sodium Chloride 0.9% 100 ML IVPB SCH (20:32)
[2018-10-28] MEDS: Atorvastatin Calcium 40 MG TAB PO SCH (20:35)
[2018-10-29] MEDS: Ibuprofen 600 MG TAB PO SCH ×4 (06:02→21:39)
[2018-10-29 06:55] LABS: Anion Gap 14 mmol/L (10-20); BUN (Urea Nitrogen) 13 mg/dL (7.0-18.7); Calc. Creatinine Clearance 128 mL/min (70-130); Calcium 8.7 mg/dL (7.8-10.44); Carbon Dioxide 21 mmol/L (22-29); Chloride 106 mmol/L (98-107); Estimated GFR-MDRD Greater than 90; Glucose 74 mg/dL (70-105); Potassium 3.7 mmol/L (3.5-5.1); Sodium 137 mmol/L (136-145)
[2018-10-29 07:35] LABS: #Eosinphils 0.3 thou/uL (0.0-0.7); #Lymphocytes 1.2 thou/uL (1.20-3.40); #Monocytes 0.6 thou/uL (0.11-0.59); #Neutrophils 4.2 thou/uL (1.40-6.50); %Basophils 0.2 % (0.0-1.0); %Eosinophils 5.3 % (0.0-10.0); %Lymphocytes 19.5 % (21.0-51.0); %Monocytes 9.3 % (0.0-10.0); %Neutrophils 65.7 % (42.0-75.0); Hemoglobin 7.6 g/dL (12.0-16.0); Mean Corpuscular HGB CONC 29.5 g/dL (32.0-36.0); Mean Corpuscular Hemoglobin 22.3 pg (27.0-31.0); Mean Corpuscular Volume 75.7 fL (78.0-98.0); Platelet Count 352 thou/uL (130-400); RBC Distribution Width 17.2 % (11.5-14.5); Red Blood Cell (RBC) Count 3.41 mill/uL (4.20-5.40); White Blood Cell (WBC) Count 6.4 thou/uL (4.8-10.8)
--- NOTE | 2018-10-29 07:44 | PDOC.FM ---
- Subjective Subjective: CC: foot pain HPI: States having minimal pain in foot. No other concerns. Agrees to PICC line placement. - Objective MAR Reviewed: Yes Vital Signs & Weight: Vital Signs (12 hours) Temp Pulse Resp BP Pulse Ox 10/29/18 04:00 98.3 F 78 18 97/60 98 10/28/18 20:00 98 F 87 18 124/75 100 Weight Admit Weight 70.307 kg Weight 70.307 kg I&O: 10/28/18 10/29/18 10/30/18 06:59 06:59 06:59 Intake Total 2897 2230 Balance 2897 2230 Result Diagrams: 10/29/18 05:35 10/29/18 05:35 Phys Exam - Physical Examination Constitutional: NAD HEENT: moist MMs, sclera anicteric Neck: no nodes, no JVD Respiratory: no wheezing, no rales, clear to auscultation bilateral Cardiovascular: RRR, no significant murmur Gastrointestinal: soft, non-tender Musculoskeletal: no edema, pulses present minimal drainage in wound vac Neurological: non-focal, normal sensation Psychiatric: normal affect, A&O x 3 Skin: no rash, cap refill <2 seconds Dx/Plan (1) Osteomyelitis Code(s): M86.9 - OSTEOMYELITIS, UNSPECIFIED Status: Acute (2) Diabetic foot infection Code(s): E11.628 - TYPE 2 DIABETES MELLITUS WITH OTHER SKIN COMPLICATIONS; L08.9 - LOCAL INFECTION OF THE SKIN AND SUBCUTANEOUS TISSUE, UNSP Status: Acute (3) Microcytic anemia Code(s): D50.9 - IRON DEFICIENCY ANEMIA, UNSPECIFIED Status: Acute (4) Sepsis Code(s): A41.9 - SEPSIS, UNSPECIFIED ORGANISM Status: Acute (5) Diabetes mellitus Code(s): E11.9 - TYPE 2 DIABETES MELLITUS WITHOUT COMPLICATIONS Status: Acute Qualifiers: Diabetes mellitus type: type 2 Diabetes mellitus equipment operator intermodal yard insulin use: without equipment operator intermodal yard use Diabetes mellitus complication status: with skin complications Diabetes mellitus complication detail: with foot ulcer Qualified Code(s): E11.621 - Type 2 diabetes mellitus with foot ulcer; L97.509 - Non-pressure chronic ulcer of other part of unspecified foot with unspecified severity - Plan Plan: Sepsis (resolved) 2/2 cellulitis with abscess of L diabetic foot wound - MRI concerning for early osteomyelitis and underlying abscess - Debridment by general surgery yesterday. - ID consulted. recommends PICC placement with protracted rocephin course. - Vanc/Rocephin day 5- GS from I&D show GPC in chain and GNR. culture pending - Vital stable, afebrile - CM to arrange outpatient wound care. will need wound vac due to how extensive abscess was. Hyponatremia, mild DM2 -A1c 9.5 - metformin XR 1000 mg BID. Glyburide 2.5 mg - Blood glucose much improved. - SSI available but not needed yet. - stressed importance of compliance. Microcytic anemia - Appears to be related to iron deficiency/ acute blood loss from heavy menstrual bleeding. - retic count appropriate, iron low - BID iron supplementation - Daily IV iron while in hospital. Anxiety/depression - outpatient eval. Dispo pending clinical course and specialist recs Addendum - Attending - Attending Attestation Date/Time: 10/29/18 9634 I personally evaluated the patient and discussed the management with Dr. Villasenor I agree with the History, Examination, Assessment and Plan documented above .
[2018-10-29] MEDS: glyBURIDE 2.5 MG TAB PO SCH (08:11)
[2018-10-29] MEDS: Lisinopril 2.5 MG TAB PO SCH (08:16)
[2018-10-29] MEDS: Aspirin 81 mg Enteric Coated Tablet PO SCH (08:18)
[2018-10-29] MEDS: Ferrous Sulfate 325 MG TAB PO SCH ×2 (08:21→16:52)
[2018-10-29] MEDS: metFORMIN XR 500 MG TAB PO SCH ×3 (08:21→16:57)
[2018-10-29] MEDS: Enoxaparin Sodium 40 MG/0.4 ML SYRINGE SC SCH (08:22)
[2018-10-29] MEDS: Atorvastatin Calcium 40 MG TAB PO SCH (21:39)
[2018-10-29] MEDS: HYDROcodone/Acetaminophen 5/325 mg Tablet PO PRN (21:39)
[2018-10-29] MEDS: cefTRIAXone\\ROCEPHIN 1 GM in Sodium Chloride 0.9% 100 ML IVPB SCH (21:40)
[2018-10-30] MEDS: traMADol HCl 50 MG TAB PO PRN (01:47)
[2018-10-30] MEDS: Ibuprofen 600 MG TAB PO SCH ×4 (01:48→20:11)
[2018-10-30 07:10] LABS: #Eosinphils 0.3 thou/uL (0.0-0.7); #Lymphocytes 1.9 thou/uL (1.20-3.40); #Monocytes 0.6 thou/uL (0.11-0.59); #Neutrophils 4.6 thou/uL (1.40-6.50); %Eosinophils 4.7 % (0.0-10.0); %Lymphocytes 25.1 % (21.0-51.0); %Monocytes 8.2 % (0.0-10.0); %Neutrophils 62.1 % (42.0-75.0); Mean Corpuscular HGB CONC 29.5 g/dL (32.0-36.0); Mean Corpuscular Hemoglobin 22.2 pg (27.0-31.0); Mean Corpuscular Volume 75.3 fL (78.0-98.0); Mean Platelet Volume 7.7 fL (7.4-10.4); Platelet Count 349 thou/uL (130-400); RBC Distribution Width 17.4 % (11.5-14.5); Red Blood Cell (RBC) Count 3.17 mill/uL (4.20-5.40); White Blood Cell (WBC) Count 7.4 thou/uL (4.8-10.8)
--- NOTE | 2018-10-30 07:56 | PDOC.FM ---
- Subjective Subjective: CC: Tired HPI: No concerns. Ready for surgery today but nervous. Denies pain. - Objective MAR Reviewed: Yes Vital Signs & Weight: Vital Signs (12 hours) Temp Pulse Resp BP BP Pulse Ox 10/30/18 07:51 98.6 F 77 16 131/76 99 10/30/18 04:00 98.1 F 75 16 120/72 99 10/29/18 20:00 98.6 F 84 16 135/78 97 Weight Admit Weight 70.307 kg Weight 70.307 kg I&O: 10/29/18 10/30/18 10/31/18 06:59 06:59 06:59 Intake Total 2230 1100 Balance 2230 1100 Result Diagrams: 10/30/18 05:35 10/29/18 05:35 Phys Exam - Physical Examination Constitutional: NAD HEENT: moist MMs, sclera anicteric Neck: no nodes, no JVD Respiratory: no wheezing, no rales, clear to auscultation bilateral Cardiovascular: RRR, no significant murmur Gastrointestinal: soft, non-tender, no distention, positive bowel sounds Musculoskeletal: no edema, pulses present Neurological: non-focal, moves all 4 limbs Lymphatic: no nodes Psychiatric: normal affect, A&O x 3 Skin: no rash, cap refill <2 seconds Dx/Plan (1) Osteomyelitis Code(s): M86.9 - OSTEOMYELITIS, UNSPECIFIED Status: Acute (2) Diabetic foot infection Code(s): E11.628 - TYPE 2 DIABETES MELLITUS WITH OTHER SKIN COMPLICATIONS; L08.9 - LOCAL INFECTION OF THE SKIN AND SUBCUTANEOUS TISSUE, UNSP Status: Acute (3) Microcytic anemia Code(s): D50.9 - IRON DEFICIENCY ANEMIA, UNSPECIFIED Status: Acute (4) Sepsis Code(s): A41.9 - SEPSIS, UNSPECIFIED ORGANISM Status: Acute (5) Diabetes mellitus Code(s): E11.9 - TYPE 2 DIABETES MELLITUS WITHOUT COMPLICATIONS Status: Acute Qualifiers: Diabetes mellitus type: type 2 Diabetes mellitus skilled nursing insulin use: without truck terminal manager use Diabetes mellitus complication status: with skin complications Diabetes mellitus complication detail: with foot ulcer Qualified Code(s): E11.621 - Type 2 diabetes mellitus with foot ulcer; L97.509 - Non-pressure chronic ulcer of other part of unspecified foot with unspecified severity - Plan Plan: Sepsis (resolve) 2/2 osteomyelitis and abscess 2/2 diabetic foot wound. - MRI concerning for early osteomyelitis and underlying abscess - Debridment by general surgery today with possible amputation. - ID consulted. recommends PICC placement with protracted rocephin course for 6 weeks. CM consult placed. - Rocephin day 6- GS from I&D show GPC in chain and GNR. culture grew two different beta hemolytic strep species. - Vital stable, afebrile - CM to arrange outpatient wound care. will need wound vac due to how extensive abscess was. Hyponatremia, mild (resolved_ DM2 -A1c 9.5 - metformin XR 1000 mg BID. Glyburide 2.5 mg - Blood glucose much improved. Will monitor today then d/c accuchecks. - SSI available but not needed yet. - stressed importance of compliance. Microcytic anemia - Appears to be related to iron deficiency/ acute blood loss from heavy menstrual bleeding. - retic count appropriate, iron low - BID iron supplementation - Daily IV iron while in hospital. Anxiety/depression - outpatient eval. Dispo pending clinical course and specialist recs but likely tomorrow or Tuesday Addendum - Attending - Attending Attestation Date/Time: 10/30/18 [id number] I personally evaluated the patient and discussed the management with Dr. Villasenor I agree with the History, Examination, Assessment and Plan documented above with any addition or exceptions noted below. L foot cellulitis with early osteo-to OR with Dr. Villeda today for washout and possible amputation (pending health of tendons). Continue IV rocephin daily and PICC line. Will need o/p woundcare and possible wound vac. Appreciate CM recs DM- controlled on current regimen. iron deficiency anemia- continue daily iron
[2018-10-30] MEDS: Lisinopril 2.5 MG TAB PO SCH (08:35)
[2018-10-30] MEDS: Ferrous Sulfate 325 MG TAB PO SCH ×2 (08:35→16:07)
[2018-10-30] MEDS: metFORMIN XR 500 MG TAB PO SCH ×2 (09:21→16:07)
[2018-10-30] MEDS: glyBURIDE 2.5 MG TAB PO SCH (09:21)
[2018-10-30] MEDS: Enoxaparin Sodium 40 MG/0.4 ML SYRINGE SC SCH (09:22)
[2018-10-30] MEDS: Aspirin 81 mg Enteric Coated Tablet PO SCH (09:22)
[2018-10-30] MEDS ORDERED: Neomycin-Polymyxin 1 ML AMP ONE (10:47)
[2018-10-30] MEDS ORDERED: Bacitracin Zinc Ointment 30 gm TUBE ONE (10:49)
[2018-10-30] MEDS ORDERED: Bupivacaine HCl 0.25%/Epi 0.0005/PF 10 ML VIAL FS ONE (10:49)
[2018-10-30] MEDS ORDERED: KETAMINE 100 MG/ML (5ML VIAL) ONE (10:54)
[2018-10-30] MEDS ORDERED: CEFAZOLIN 2 GM/50 ML BAG ONE (11:30)
[2018-10-30] MEDS ORDERED: Fentanyl 100 MCG/2 ML VIAL ONE ×2 (11:55→13:14)
[2018-10-30] MEDS ORDERED: Promethazine HCl 25 MG/ML VIAL IM PRN (13:19)
[2018-10-30] MEDS ORDERED: Ondansetron HCl/PF 4 MG/2 ML Vial IVP PRN (13:19)
[2018-10-30] MEDS ORDERED: Promethazine HCl 25 MG/ML VIAL SLOW IVP PRN (13:19)
[2018-10-30] MEDS: HYDROcodone/Acetaminophen 5/325 mg Tablet PO PRN ×2 (14:46→23:07)
[2018-10-30] MEDS ORDERED: Glycopyrrolate 0.2 MG/ML 5 ML SYRINGE ONE (14:56)
[2018-10-30] MEDS ORDERED: Ondansetron PF 4 MG/2 ML Vial ONE (14:56)
[2018-10-30] MEDS ORDERED: PROPOFOL 200 MG/20 ML VIAL ONE (14:56)
[2018-10-30] MEDS ORDERED: Lidocaine 1% PF 5 ML VIAL ONE (14:56)
--- NOTE | 2018-10-30 16:55 | PDOC.OP ---
Operative Note - Operative Note Operative Note: PROCEDURE: Repeat washout of left foot wound DATE OF PROCEDURE: 10/30/2018 SURGEON: Arline Villeda M.D. PREOPERATIVE DIAGNOSES: Diabetic foot infection, severe, with multiple exposed tendons POSTOPERATIVE DIAGNOSIS: Diabetic foot infection, severe, with multiple exposed tendons and possible midfoot joint involvement HISTORY: Patient with severe left diabetic foot infection status post extensive debridement last week. She returns for repeat debridement and possible foot amputation if the infectious process appears to be extending. FINDINGS: Minimal residual pus, but concern for midfoot joint involvement PROCEDURE IN DETAIL: After informed consent was obtained and appropriate antibodies continue the patient was taken to the operating and placed in the supine position and anesthesia administered. She was prepped and draped in standard sterile fashion and the wound carefully examined. There was some nonviable sloughing tissue especially under the dorsal skin flap which was debrided. The proximal portion of the extensor pollicis longus tendon was also debrided back to viable appearing tissue. There were a few tracts with expressible pus extending laterally but none proximally. These were all opened up and drained and were shallow. There was some necrotic-appearing tissue underlying the extensor tendons laterally on the foot and this was debrided. With compression of the underlying tissues there was some cloudy fluid expressed concerning for synovial fluid since it was not as thick as the pus coming from the other tissues. On manipulation of the foot, there was some crepitance with movement of the joint, again concerning for joint involvement. The remaining tendons appeared potentially viable although the most lateral exposed tendon was somewhat desiccated. The decision was made to replace the irrigating wound VAC and consult infectious disease regarding potential viability of the foot. If there is midfoot joint involvement, below-knee amputation might be the best option, but since the patient has good blood flow and is young, an attempt at salvage could be considered.
--- NOTE | 2018-10-30 18:01 | PRG ---
DATE OF SERVICE: 10/30/2018 SUBJECTIVE: Ms. Lees went for second debridement, intervention today. I do not have yet the poker in from the intervention. She does not have any pain. No respiratory symptoms or abdominal pain. No diarrhea. She is actually constipated. OBJECTIVE: VITAL SIGNS: T-max is 98.6, blood pressure 140/80, pulse 71, and respirations 18. GENERAL: Appears in no distress. LUNGS: Clear. HEART: S1 and S2. Regular rate. No S3 or S4. ABDOMEN: Soft, not distended or tender. No ascites. No bladder distention. EXTREMITIES: Foot has a negative pressure dressing in place. LABORATORY DATA: White cell count 7.4, hemoglobin 7, platelets 349. Microbiology with the same organism retrieved from the 16 and 18 group C Strep and group B Streptococcus. She is currently receiving ceftriaxone which will be continued. ASSESSMENT AND DISCUSSION: Type 2 diabetes, soft tissue involvement with tenosynovitis and MRI findings that might suggest early osteomyelitis of one of the phalanges, although no bony destructive changes. The patient to continue on Rocephin through a PICC line for a protracted period of time. Orders have been entered for outsole caser. Job ID: [id number]
[2018-10-30] MEDS: cefTRIAXone\\ROCEPHIN 1 GM in Sodium Chloride 0.9% 100 ML IVPB SCH (20:11)
[2018-10-30] MEDS: Atorvastatin Calcium 40 MG TAB PO SCH (20:11)
[2018-10-31] MEDS: Ibuprofen 600 MG TAB PO SCH ×4 (03:28→21:00)
[2018-10-31] MEDS: traMADol HCl 50 MG TAB PO PRN (03:29)
[2018-10-31 06:48] LABS: #Eosinphils 0.4 thou/uL (0.0-0.7); #Lymphocytes 2.1 thou/uL (1.20-3.40); #Monocytes 0.6 thou/uL (0.11-0.59); #Neutrophils 4.4 thou/uL (1.40-6.50); %Basophils 0.3 % (0.0-1.0); %Eosinophils 5.6 % (0.0-10.0); %Lymphocytes 28.3 % (21.0-51.0); %Monocytes 7.3 % (0.0-10.0); %Neutrophils 58.6 % (42.0-75.0); Hemoglobin 7.8 g/dL (12.0-16.0); Mean Corpuscular Hemoglobin 22.5 pg (27.0-31.0); Mean Corpuscular Volume 75.1 fL (78.0-98.0); Mean Platelet Volume 7.5 fL (7.4-10.4); Platelet Count 380 thou/uL (130-400); RBC Distribution Width 17.7 % (11.5-14.5); Red Blood Cell (RBC) Count 3.45 mill/uL (4.20-5.40); White Blood Cell (WBC) Count 7.5 thou/uL (4.8-10.8)
--- NOTE | 2018-10-31 07:44 | PDOC.FM ---
- Subjective Subjective: CC: Tired HPI: NO concerns. States surgery went well. Pain controlled. Waiting for PICC line today and plan for washout tomorrow with possible BKA. - Objective MAR Reviewed: Yes Vital Signs & Weight: Vital Signs (12 hours) Temp Pulse Resp BP Pulse Ox 10/30/18 23:32 98.6 F 74 20 111/71 100 Weight Admit Weight 70.307 kg Weight 70.307 kg I&O: 10/30/18 10/31/18 11/01/18 06:59 06:59 06:59 Intake Total 1100 1120 Balance 1100 1120 Result Diagrams: 10/31/18 06:08 10/29/18 05:35 Phys Exam - Physical Examination Constitutional: NAD HEENT: moist MMs, sclera anicteric Neck: no nodes, no JVD Respiratory: no wheezing, clear to auscultation bilateral Cardiovascular: RRR, no significant murmur Gastrointestinal: soft, non-tender Musculoskeletal: no edema, pulses present Neurological: non-focal, moves all 4 limbs Psychiatric: normal affect, A&O x 3 Skin: no rash, normal turgor Dx/Plan (1) Osteomyelitis Code(s): M86.9 - OSTEOMYELITIS, UNSPECIFIED Status: Acute (2) Diabetic foot infection Code(s): E11.628 - TYPE 2 DIABETES MELLITUS WITH OTHER SKIN COMPLICATIONS; L08.9 - LOCAL INFECTION OF THE SKIN AND SUBCUTANEOUS TISSUE, UNSP Status: Acute (3) Microcytic anemia Code(s): D50.9 - IRON DEFICIENCY ANEMIA, UNSPECIFIED Status: Acute (4) Sepsis Code(s): A41.9 - SEPSIS, UNSPECIFIED ORGANISM Status: Acute (5) Diabetes mellitus Code(s): E11.9 - TYPE 2 DIABETES MELLITUS WITHOUT COMPLICATIONS Status: Acute Qualifiers: Diabetes mellitus type: type 2 Diabetes mellitus fdc 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 - MRI concerning for early osteomyelitis and underlying abscess - Debridment by general surgery yesterday. Did not amputate toes or midfoot. Plan for washout tomorrow with possible BKA. Continue wound vac. - ID consulted. recommends PICC placement with protracted rocephin course for 6 weeks. Approved for outpatient antibiotics. - Rocephin day 6- GS from I&D show GPC in chain and GNR. culture grew two different beta hemolytic strep species. - Vital stable, afebrile - CM to arrange outpatient wound care. Awaiting surgery recs. - PICC line today. Hyponatremia, mild (resolved) DM2 -A1c 9.5 - metformin XR 1000 mg BID. Glyburide 2.5 mg - D/C accuchecks. - SSI available but not needed yet. - stressed importance of compliance. Microcytic anemia - Appears to be related to iron deficiency/ acute blood loss from heavy menstrual bleeding. - retic count appropriate, iron low - BID iron supplementation - Daily IV iron while in hospital. Anxiety/depression - outpatient eval. Dispo pending surgery recommendations. Addendum - Attending - Attending Attestation Date/Time: 10/31/18 4590 I personally evaluated the patient and discussed the management with Dr. Villasenor I agree with the History, Examination, Assessment and Plan documented above with any addition or exceptions noted below. Left foot early osteo/absess- will need 6 week of IV rocephin- PICC line placed today. Continue washouts per surgery and wound vac. CM working on home wound vac treatment. DM-accuchecks at goal Iron def anemia- stable h/h
[2018-10-31] MEDS: metFORMIN XR 500 MG TAB PO SCH ×2 (09:51→18:01)
[2018-10-31] MEDS: glyBURIDE 2.5 MG TAB PO SCH (09:51)
[2018-10-31] MEDS: Ferrous Sulfate 325 MG TAB PO SCH ×2 (09:52→18:01)
[2018-10-31] MEDS: Lisinopril 2.5 MG TAB PO SCH (09:52)
[2018-10-31] MEDS: Aspirin 81 mg Enteric Coated Tablet PO SCH (09:52)
[2018-10-31] MEDS: Enoxaparin Sodium 40 MG/0.4 ML SYRINGE SC SCH (09:57)
--- NOTE | 2018-10-31 10:35 | SPC ---
PICC PLACEMENT ULTRASOUND GUIDED VENOUS ACCESS: (Peripherally Inserted Central Catheter) 10/31/2018 HISTORY: A 43-year-old female with left foot infection, requiring long-term IV antibiotics. TECHNIQUE: Catheter caliber: 5 [place]err[place]ian Catheter trim length: 49 cm Catheter lumen number: Single Catheter tip location: Superior vena cava/right atrial junction. Vein accessed: Left basilic TOTAL FLUOROSCOPY TIME: 0.5 minutes DOSE AREA PRODUCT: 2,896 mGy*cm^2 Signed, informed consent was obtained. A tourniquet was applied at the proximal aspect of the arm. The arm was prepared and draped in the usual sterile fashion. A 25 gauge needle was used to apply bu ffered lidocaine superficially. The vein was punctured with a 21 gauge micropuncture needle under ul trasound guidance. A 0.018 inch guide wire was advanced through the micropuncture needle and into th e vein. Under fluoroscopic guidance, the guide wire was advanced to the right atrium. The PICC (per ipherally inserted central catheter) was flushed and trimmed to the appropriate length. The skin pun cture hole was widened with a blade. The micropuncture needle was exchanged over the guide wire for a 5 [place]erratian peel-away dilator sheath. The dilator was exchanged over the guide wire for the PICC, whi ch was then further advanced under fluoroscopy. The sheath and guide wire were removed. The PICC wa s flushed again and secured in place at the arm. The patient tolerated the procedure well. There wa s no complication. IMPRESSION: Successful placement of PICC (peripherally inserted central catheter). shari [] POS: LUISA
--- NOTE | 2018-10-31 14:24 | PDOC.GSPN ---
Surgery Progress Note: Subj - Subjective Narrative: Patient feels okay today. She is not having much pain in her foot. She is able to move her toes and her ankle. Cultures from the operating room are showing multiple anaerobic gram-negative and gram-positive rods and Flagyl has been started. Her VAC dressing is in place with serous drainage. The swelling in her foot appears to be slowly improving. We will plan on examination in the operating room with repeat debridement as necessary. If the infection appears to be progressing then foot amputation may ultimately be necessary, but given her age and good circulation we will try to preserve her foot. Surgery Progress Note: Obj - Vital signs Vital signs: Vital Signs - Most Recent Temp Pulse Resp BP Pulse Ox 98.2 F 82 18 149/84 H 100 10/31/18 11:39 10/31/18 11:39 10/31/18 11:39 10/31/18 11:39 10/31/18 11:39 Surgery Progress Note: Results - Labs Result Diagrams: 10/31/18 06:08 10/29/18 05:35 Lab results: Laboratory Results - last 24 hr 10/31/18 10/31/18 10/31/18 05:29 06:08 11:42 WBC 7.5 RBC 3.45 L Hgb 7.8 L Hct 25.9 L MCV 75.1 L MCH 22.5 L MCHC 30.0 L RDW 17.7 H Plt Count 380 MPV 7.5 Neutrophils % 58.6 Lymphocytes % 28.3 Monocytes % 7.3 Eosinophils % 5.6 Basophils % 0.3 Neutrophils # 4.4 Lymphocytes # 2.1 Monocytes # 0.6 H Eosinophils # 0.4 Basophils # 0.0 POC Glucose 120 H 114 H
[2018-10-31] MEDS: metroNIDAZOLE 500 MG TAB PO SCH ×2 (14:41→21:00)
--- NOTE | 2018-10-31 17:54 | PRG ---
DATE OF SERVICE: 10/31/2018 SUBJECTIVE: Ms. Lees is not having much pain. No diarrhea. No respiratory symptoms. Vital signs are essentially normal. Left foot with a negative pressure dressing. I was able to review the report from Dr. Villeda, and there was extension of the infectious process with some areas of necrosis and some concern with hindfoot involvement. OBJECTIVE: LUNGS: Clear. HEART: S1 and S2, regular rate. ABDOMEN: Soft, not distended. MUSCULOSKELETAL: No joint inflammatory activity outside the area of involvement. LABORATORY DATA: White cell count 7.5, hemoglobin 7.8, and platelets 380 with normal differential. Three anaerobes popped up in the latest cultures. ASSESSMENT AND DISCUSSION: Type 2 diabetes with infection in left foot with extensive soft tissue involvement, tenosynovitis, and some concern with septic arthritis of the hindfoot region, may be early osteomyelitis in one of the phalanges. At this point, we will add Flagyl. Continue Rocephin and try to salvage the foot. Continuation of wound care and long-term antimicrobial therapy. Job ID: [id number]
[2018-10-31] MEDS: cefTRIAXone\\ROCEPHIN 1 GM in Sodium Chloride 0.9% 100 ML IVPB SCH (20:59)
[2018-10-31] MEDS: Atorvastatin Calcium 40 MG TAB PO SCH (21:00)
[2018-10-31] MEDS: HYDROcodone/Acetaminophen 5/325 mg Tablet PO PRN (22:38)
[2018-11-01] MEDS: Ibuprofen 600 MG TAB PO SCH ×2 (03:02→11:59)
--- NOTE | 2018-11-01 08:08 | PDOC.FM ---
- Subjective Subjective: CC: nervous HPI: Anxious for surgery today. No other concerns. Awaiting final recommendations from general surgery. Approved for wound vac outpatient. - Objective MAR Reviewed: Yes Vital Signs & Weight: Vital Signs (12 hours) Temp Pulse Resp BP BP Pulse Ox 11/01/18 07:08 98.9 F 82 19 126/75 96 11/01/18 05:57 98.5 F 68 16 131/73 95 10/31/18 21:00 98.6 F 75 16 146/68 H 100 Weight Admit Weight 70.307 kg Weight 70.307 kg I&O: 10/31/18 11/01/18 11/02/18 06:59 06:59 06:59 Intake Total 1120 500 Balance 1120 500 Result Diagrams: 10/31/18 06:08 10/29/18 05:35 Phys Exam - Physical Examination Constitutional: NAD HEENT: moist MMs, sclera anicteric Respiratory: no wheezing, clear to auscultation bilateral Cardiovascular: RRR, no significant murmur Gastrointestinal: soft, non-tender Musculoskeletal: no edema Neurological: non-focal, moves all 4 limbs Psychiatric: normal affect, A&O x 3 Skin: normal turgor, cap refill <2 seconds Dx/Plan (1) Osteomyelitis Code(s): M86.9 - OSTEOMYELITIS, UNSPECIFIED Status: Acute (2) Diabetic foot infection Code(s): E11.628 - TYPE 2 DIABETES MELLITUS WITH OTHER SKIN COMPLICATIONS; L08.9 - LOCAL INFECTION OF THE SKIN AND SUBCUTANEOUS TISSUE, UNSP Status: Acute (3) Microcytic anemia Code(s): D50.9 - IRON DEFICIENCY ANEMIA, UNSPECIFIED Status: Acute (4) Sepsis Code(s): A41.9 - SEPSIS, UNSPECIFIED ORGANISM Status: Acute (5) Diabetes mellitus Code(s): E11.9 - TYPE 2 DIABETES MELLITUS WITHOUT COMPLICATIONS Status: Acute Qualifiers: Diabetes mellitus type: type 2 Diabetes mellitus skilled nursing insulin use: without skilled nursing use Diabetes mellitus complication status: with skin complications Diabetes mellitus complication detail: with foot ulcer Qualified Code(s): E11.621 - Type 2 diabetes mellitus with foot ulcer; L97.509 - Non-pressure chronic ulcer of other part of unspecified foot with unspecified severity - Plan Plan: Sepsis (resolve) 2/2 osteomyelitis and abscess 2/2 diabetic foot wound. - MRI concerning for early osteomyelitis and underlying abscess - Debridment by general surgery yesterday. Did not amputate toes or midfoot. Plan for washout tomorrow with possible BKA. Continue wound vac. - ID consulted. recommends PICC placement with protracted rocephin course for 6 weeks. Approved for outpatient antibiotics. Started flagyl yesterday. - Rocephin day 7, flagyl day 2- GS from I&D show GPC in chain and GNR. culture grew two different beta hemolytic strep species. - Vital stable, afebrile - CM to arrange outpatient wound care. Awaiting surgery recs. - PICC line today. Hyponatremia, mild (resolved) DM2 -A1c 9.5 - metformin XR 1000 mg BID. Glyburide 2.5 mg - stressed importance of compliance. Microcytic anemia - Appears to be related to iron deficiency/ acute blood loss from heavy menstrual bleeding. - retic count appropriate, iron low - BID iron supplementation Anxiety/depression - outpatient eval. Dispo pending surgery recommendations but likely tomorrow. Addendum - Attending - Attending Attestation Date/Time: 11/01/18 1600 I personally evaluated the patient and discussed the management with Dr. Villasenor I agree with the History, Examination, Assessment and Plan documented above with any addition or exceptions noted below. s/p washout with surgery today and patient cleared for discharge. Wound vac and IV abx set up. D/C home this pm.
[2018-11-01] MEDS ORDERED: Fentanyl 100 MCG/2 ML VIAL ONE ×2 (08:13→11:22)
[2018-11-01] MEDS: Enoxaparin Sodium 40 MG/0.4 ML SYRINGE SC SCH (09:00)
[2018-11-01] MEDS ORDERED: Famotidine/PF 20 mg/2ml Vial ONE (09:13)
[2018-11-01] MEDS ORDERED: Bupivacaine HCl 0.25%/Epi 0.0005/PF 10 ML VIAL FS ONE (09:32)
[2018-11-01] MEDS ORDERED: Neomycin-Polymyxin 1 ML AMP ONE (09:32)
[2018-11-01] MEDS ORDERED: metroNIDAZOLE 500 MG/100 ML BAG ONE (09:39)
[2018-11-01] MEDS ORDERED: Midazolam HCl 2 mg/2 ml Vial ONE (09:39)
[2018-11-01] MEDS ORDERED: metroNIDAZOLE 500 MG in Premix Bag 1 BAG IVPB SCH (09:40)
[2018-11-01] MEDS ORDERED: Ondansetron HCl/PF 4 MG/2 ML Vial IVP PRN (10:54)
[2018-11-01] MEDS ORDERED: Ketorolac Tromethamine 30 MG/ML VIAL IVP PRN (10:54)
[2018-11-01] MEDS ORDERED: Meperidine HCl/PF 25 MG/ML VIAL SLOW IVP PRN (10:54)
[2018-11-01] MEDS ORDERED: HYDROmorphone 2 MG/ML VIAL SLOW IVP PRN (10:54)
[2018-11-01] MEDS ORDERED: Promethazine HCl 25 MG/ML VIAL SLOW IVP PRN (10:54)
[2018-11-01] MEDS ORDERED: Promethazine HCl 25 MG/ML VIAL IM PRN (10:54)
[2018-11-01 11:53] VITALS: TEMP 98.2
[2018-11-01] MEDS: Ferrous Sulfate 325 MG TAB PO SCH (11:58)
[2018-11-01] MEDS: glyBURIDE 2.5 MG TAB PO SCH (11:58)
[2018-11-01] MEDS: Lisinopril 2.5 MG TAB PO SCH (11:58)
[2018-11-01] MEDS: metFORMIN XR 500 MG TAB PO SCH (11:58)
[2018-11-01] MEDS: Aspirin 81 mg Enteric Coated Tablet PO SCH (11:58)
[2018-11-01] MEDS: metroNIDAZOLE 500 MG TAB PO SCH (11:59)
[2018-11-01 12:00] VITALS: BP 128/78
[2018-11-01] MEDS: HYDROcodone/Acetaminophen 5/325 mg Tablet PO PRN (12:29)
[2018-11-01] MEDS ORDERED: Ondansetron PF 4 MG/2 ML Vial ONE (12:59)
[2018-11-01] MEDS ORDERED: PHENYLEPHRINE-NS 100 MCG/ML 10 ML SYRINGE ONE (12:59)
[2018-11-01] MEDS ORDERED: PROPOFOL 200 MG/20 ML VIAL ONE (12:59)
[2018-11-01] MEDS ORDERED: Lidocaine 1% PF 5 ML VIAL ONE (12:59)
[2018-11-01] MEDS ORDERED: Metoclopramide HCl 10 MG/2 ML VIAL ONE (12:59)
--- NOTE | 2018-11-02 03:57 | DIS ---
DATE OF ADMISSION: 10/25/2018 DATE OF DISCHARGE: 11/01/2018 RESIDENT: Junior Villasenor MD. ADMITTING ATTENDING: Tera Gr MD. DISCHARGE ATTENDING: Dimple Persaud MD. CONSULTATIONS: 1. Dr. Arline Villeda, general surgery. 2. Dr. Elieser Fernandes, infectious disease. PROCEDURES: 1. Incision and drainage of left foot on 10/27/2018 with postop wound VAC and irrigation. 2. Wound washout on 10/30/2018 with wound VAC and irrigation. 3. Wound washout on 11/01/[address]. 4. PICC line placement on 10/31/2018. IMAGIN. Foot x-ray on 10/25/2018, presumed degenerative changes involving the first digits involving the interphalangeal space and first metatarsophalangeal space, soft tissue swelling with ulceration involving dorsum of midfoot soft tissues. No radiographic evidence of osteomyelitis. 2. Left foot MRI, marked edema with open wound on dorsum of foot near the first metatarsophalangeal joint with minimal food density tracked superficially dorsally to the left metatarsal without definite abscess. No bony destructive change, but possible early osteomyelitis. PERTINENT LABORATORY FINDINGS: White blood cell count at the time of admission 16.1, trended down to 7.5. Hemoglobin at the time of admission 11.1, trended down to 7.8. ESR 130. CRP 27.06. A1c 9.5. MICROBIOLOGY: 1. Left foot culture, group C streptococcus and streptococcus agalactiae. 2. Left foot culture collected during initial I and D with washout. Group B streptococcus with multiple anaerobic gram-negative rods and gram-positive rods. PRIMARY DIAGNOSIS: Sepsis (resolved) secondary to osteomyelitis of the left foot with overlying cellulitis and abscess. SECONDARY DIAGNOSES: 1. Diabetes mellitus type 2 - uncontrolled. 2. Mild hyponatremia - resolved. 3. Microcytic anemia, suspected to be secondary to blood loss. 4. Heavy menstrual bleeding. 5. Anxiety. 6. Depression. DISCHARGE MEDICATIONS: 1. Metformin ER 1000 mg b.i.d. 2. Glyburide 2.5 mg daily. 3. Ibuprofen 600 mg q.6 hours. 4. Tramadol 50 mg q.4-6 hours p.r.n. pain. 5. Lisinopril 2.5 mg daily. 6. Aspirin 81 mg daily. 7. Atorvastatin 40 mg at bedtime. 8. Ferrous sulfate 325 mg b.i.d. 9. Rocephin 1 g IV piggyback daily to be received at the infusion center. 10. Flagyl 500 mg t.i.d. for 6 weeks. DISCONTINUED MEDICATION: None. HISTORY OF PRESENT ILLNESS AND HOSPITAL COURSE: Ms. Lees is a pleasant 43-year-old female who presented to the ER with a chief complaint of left foot swelling, redness, and tenderness. Stated she had an open wound on her foot for the past month which she had been treating at home with peroxide. Stated 5 days prior to arrival, the foot became more swollen and developed purulent drainage. States she had a history of diabetic foot infections before requiring protracted courses of outpatient antibiotics. States she had not been taking medications for her diabetes. She was initially started on vancomycin and Zosyn in the ER, which was quickly deescalated to vancomycin. However, when an initial gram stain showed gram-positive cocci and gram-variable rods, Rocephin was added to the treatment course. General surgery was consulted on day one of the hospitalization to perform incision and drainage with the abscess. However, during surgery, the wound and underlying infection were more extensive than initially anticipated. The patient's foot was opened along 2 separate tracks that extended above the ankle. She went back for 2 subsequent washouts as detailed above. Infectious disease was consulted for outpatient antibiotic recommendations. Given the fact that there was concern for early signs of osteomyelitis and on the repeat washouts, there was purulent drainage noted to be coming from the joint space and the mid foot. The patient agreed to undergo protracted outpatient antibiotics. The patient's culture grew back group C strep and strep agalactiae. These are sensitive to Rocephin. The anaerobic culture also grew out mixed gram positive and negative rods. Flagyl was added to cover these anaerobes. Outpatient arrangements were made with the infusion center and with wound care. Luzma care was arranged as the patient is currently unfunded. Prior to the hospitalization, the patient had noted history of poorly-controlled diabetes. She had not been taking medication prior to admission. Pharmacy reviewed her outpatient prescription record and noted she had not picked up any antihyperglycemic medications for over almost 2 years. She was restarted on metformin XR as metformin IR had caused her severe GI symptoms and led to noncompliance in the past. Given her A1c, a second agent of glyburide was started. These provided adequate control of her diabetes based on Accu-Cheks. Given her age and risk factors, she agreed to start aspirin and statin therapy as well as low dose of lisinopril for renal protective benefits. She was given information to follow up outpatient at [facility] and physicians for the [facility] emergency department program to assist with her outpatient followups and evaluations. DISPOSITION: She was discharged in stable condition. While she will have a protracted outpatient course and the need for amputation of the left foot still exists, it was felt by the primary care team and the specialist on her case that she should make a full recovery. She agreed to have a close followup with Dr. Villeda and Dr. Fernandes. It was also stressed the importance of compliance with her diabetes medications and controlling her blood sugars going forward. INSTRUCTIONS: 1. Location: Home with daily IV infusions at the infusion center and close followup at the wound care center. 2. Activity: As tolerated. 3. Diet: Consist of carb. 4. Followup: The patient is to follow up with [facility] and physicians within 1 week of discharge. Her contact information was forwarded to the clinic health care / medical job titles to assist her making the appointment and we will also attempt to enrol her in the finance assistance program. She is also to call Dr. Villeda and Dr. Fernandes' office to schedule outpatient followup. Approximately 40 minutes was spent in coordinating this discharge including arranging outpatient followups and providing patient counselling and eduction. Job ID: [id number] MTDD
== END 2018-11-01 15:13 | disposition home or self-care (01) | DRG 854 ==
LOC: ERS 04:11 → T4-A 06:09
PROVIDERS: ADMIT Emergency Medicine; ATTEND Emergency Medicine
PROC: 0LBT0ZZ Excision of Left Ankle Tendon, Open Approach (ICD-10-PCS; principal; 2018-10-27)
PROC: 0LBW0ZZ Excision of Left Foot Tendon, Open Approach (ICD-10-PCS; 2018-10-27)
PROC: 0LBW0ZZ Excision of Left Foot Tendon, Open Approach (ICD-10-PCS; 2018-10-30)
PROC: 02HV33Z Insertion of Infusion Device into Superior Vena Cava, Percutaneous Approach (ICD-10-PCS; 2018-10-31)
PROC: 2W1TX6Z Compression of Left Foot using Pressure Dressing (ICD-10-PCS; 2018-11-01)
DX: A41.9 Sepsis, unspecified organism (principal); E87.1 Hypo-osmolality and hyponatremia; M86.8X7 Other osteomyelitis, ankle and foot; M65.172 Other infective (teno)synovitis, left ankle and foot; B95.1 Streptococcus, group B, as the cause of diseases classified elsewhere; B95.4 Other streptococcus as the cause of diseases classified elsewhere; E11.69 Type 2 diabetes mellitus with other specified complication; E11.621 Type 2 diabetes mellitus with foot ulcer; L97.529 Non-pressure chronic ulcer of other part of left foot with unspecified severity; E11.40 Type 2 diabetes mellitus with diabetic neuropathy, unspecified; D50.9 Iron deficiency anemia, unspecified; E11.65 Type 2 diabetes mellitus with hyperglycemia; N92.0 Excessive and frequent menstruation with regular cycle; F41.8 Other specified anxiety disorders; Z91.14 Patient's other noncompliance with medication regimen
CPT/HCPCS: 36415; 36416; 36569; 80048; 80053; 80202; 82728; 83036; 83540; 83550; 83605; 84703; 85025; 85046; 85060; 85610; 85652; 86140; 86850; 86900; 86901; 87040; 87070; 87077; 87205; 90715; 96361; 96365; A9577; C1751; J0696; J1644; J1650; J1756; J2001; J2250; J2405; J2704; J2765; J3010; J3370; J3490; J7050; S0028

== ENCOUNTER 2018-11-03 12:46 | Outpatient (CLI) | payer SELFPAY ==
[~2018-11-03 12:46] MED LIST: Sodium Chloride 0.9% 15 ML NEB ONE
== END 2018-11-03 12:47 | disposition home or self-care (01) ==
LOC: WCC 12:46
PROVIDERS: ATTEND Family Medicine
DX: T81.89XD Other complications of procedures, not elsewhere classified, subsequent encounter (principal)
CPT/HCPCS: 36416; 97606; A4218

== ENCOUNTER 2018-11-06 12:49 | Outpatient (CLI) | payer SELFPAY ==
[2018-11-06] MEDS ORDERED: Sodium Chloride 0.9% 15 ML NEB ONE (15:00)
== END 2018-11-06 12:50 | disposition home or self-care (01) ==
LOC: WCC 12:49
PROVIDERS: ATTEND Family Medicine
DX: T81.89XD Other complications of procedures, not elsewhere classified, subsequent encounter (principal)
CPT/HCPCS: 97606; A4218

== ENCOUNTER 2018-11-08 14:05 | Outpatient (CLI) | payer SELFPAY ==
[2018-11-08] MEDS ORDERED: Sodium Chloride 0.9% 15 ML NEB ONE (15:00)
== END 2018-11-08 14:06 | disposition home or self-care (01) ==
LOC: WCC 14:05
PROVIDERS: ATTEND Family Medicine
DX: T81.89XD Other complications of procedures, not elsewhere classified, subsequent encounter (principal)
CPT/HCPCS: 97606; A4218

== ENCOUNTER 2018-11-10 13:58 | Outpatient (CLI) | payer SELFPAY ==
[2018-11-10] MEDS ORDERED: Sodium Chloride 0.9% 15 ML NEB ONE (15:00)
== END 2018-11-10 13:59 | disposition home or self-care (01) ==
LOC: WCC 13:58
PROVIDERS: ATTEND Family Medicine
DX: T81.89XD Other complications of procedures, not elsewhere classified, subsequent encounter (principal)
CPT/HCPCS: 36416; 97606; A4218

== ENCOUNTER 2018-11-14 10:46 | Outpatient (CLI) | payer SELFPAY | END 2018-11-14 10:47 | disposition home or self-care (01) | LOC: WCC 10:46 | PROVIDERS: ATTEND Family Medicine | DX: T81.89XD Other complications of procedures, not elsewhere classified, subsequent encounter (principal) | CPT/HCPCS: 36416; 97606; A4218 ==

== ENCOUNTER 2018-11-16 12:39 | Outpatient (CLI) | payer SELFPAY ==
--- NOTE | 2018-11-16 20:50 | HP ---
HISTORY OF PRESENT ILLNESS: Ms. Susana Lees is a very pleasant 43-year-old who presents to the Wound Center for evaluation of 2 wounds of the left foot subsequent to incision and debridement of an extensive left foot abscess on 10/27/[address] Arline Villeda. The patient subsequently underwent intraoperative debridement of the left foot on 10/30/2018 and on 11/01/[address] Villeda. Negative pressure therapy was initiated subsequent to surgery on 10/27/2018. Upon discharge from [facility], the patient was referred to the Wound Center for assistance with dressing changes of the wound VAC. The patient is receiving IV antibiotics as per Dr. Elieser Fernandes for osteomyelitis. PAST MEDICAL HISTORY: 1. Diabetes mellitus type 2. 2. Anemia. PAST SURGICAL HISTORY: 1. Tonsillectomy. 2. Tubes in ears, remote. 3. Incision and debridement of extensive left foot abscess and infection on 10/27/2018. 4. Intraoperative debridement of left foot on 10/30/2018. 5. Intraoperative debridement of left foot on 11/01/2018. MEDICATIONS: 1. Aspirin 81 mg. 2. Lipitor. 3. Feosol. 4. Metformin. 5. Lisinopril. 6. Glyburide. 7. Motrin. 8. Ultram. 9. Flagyl. 10. IV antibiotics as per Infectious Diseases. ALLERGIES: NO KNOWN DIAGNOSED ALLERGIES. SOCIAL HISTORY: Significant for tobacco use on a social basis for approximately 2 to 3 years. The patient admits to the social consumption of alcohol for approximately 4 years. FAMILY HISTORY: Significant for diabetes mellitus. The patient's paternal grandmother and maternal grandfather were both diagnosed with diabetes mellitus. PHYSICAL EXAMINATION: VITAL SIGNS: Temperature 98.3, pulse 98, respirations 20, blood pressure 156/72. Accu-Chek 290. GENERAL: A 43-year-old female, sitting on chair in examination room, in no acute distress. HEENT: Normocephalic and atraumatic. NECK: No nuchal rigidity. CHEST: Clear to auscultation. CARDIOVASCULAR: Regular rate and rhythm. ABDOMEN: Soft. EXTREMITIES: Two wounds of the left foot are present which measure 9.9 x 2.3 cm and 12.8 x 3.3 cm. Granulation tissue is present within the margins of both wounds. Tendon is exposed within the margins of the lateral foot wound. No purulent drainage is associated with either wound. No erythema of the skin surrounding either wound is present. No maceration of the skin of the periwound of either wound is noted. A dorsalis pedis pulse is easily palpable on the left. No significant edema of the left foot is present on exam today. NEUROLOGIC: Grossly nonfocal. ASSESSMENT AND PLAN: 1. Left foot wounds subsequent to incision and debridement of an extensive left foot abscess on 10/27/2018, followed by 2 intraoperative debridements on 10/30/2018 and 11/01/2018. The patient underwent the preceding procedures by Dr. Arline Villeda. Negative pressure therapy will be continued with dressing changes of the wound VAC here in the Wound Center. As stated above, the patient is receiving IV antibiotics as per Dr. Elieser Fernandes of Infectious Diseases for osteomyelitis. I will see Ms. Lees again in 2 weeks. 2. Diabetes mellitus. The patient's Accu-Chek in clinic today is 290. The patient has been told that for optimal wound healing, her blood glucoses should remain below 150. 3. Anemia. Job ID: [id number]
== END 2018-11-16 12:40 | disposition home or self-care (01) ==
LOC: WCC 12:39
PROVIDERS: ATTEND Family Medicine
DX: T81.89XD Other complications of procedures, not elsewhere classified, subsequent encounter (principal); E11.9 Type 2 diabetes mellitus without complications; D64.9 Anemia, unspecified
CPT/HCPCS: 97602; 99203; A4218; G0463

== ENCOUNTER 2018-11-20 09:59 | Outpatient (CLI) | payer SELFPAY | END 2018-11-20 10:00 | disposition home or self-care (01) | LOC: WCC 09:59 | PROVIDERS: ATTEND Family Medicine | DX: T81.89XD Other complications of procedures, not elsewhere classified, subsequent encounter (principal) | CPT/HCPCS: 97606; A4218 ==

== ENCOUNTER 2018-11-22 10:18 | Outpatient (CLI) | payer SELFPAY ==
[2018-11-22] MEDS ORDERED: Sodium Chloride 0.9% 15 ML NEB ONE ×2 (15:58→15:59)
== END 2018-11-22 10:19 | disposition home or self-care (01) ==
LOC: WCC 10:18
PROVIDERS: ATTEND Family Medicine
DX: T81.89XD Other complications of procedures, not elsewhere classified, subsequent encounter (principal)
CPT/HCPCS: 36416; 97605; A4218

== ENCOUNTER 2018-11-24 09:27 | Outpatient (CLI) | payer SELFPAY | END 2018-11-24 09:28 | disposition home or self-care (01) | LOC: WCC 09:27 | PROVIDERS: ATTEND Family Medicine | DX: T81.89XD Other complications of procedures, not elsewhere classified, subsequent encounter (principal) | CPT/HCPCS: 97605 ==

== ENCOUNTER 2018-11-28 10:40 | Outpatient (CLI) | payer OTHER, SELFPAY | END 2018-11-28 10:41 | disposition home or self-care (01) | LOC: WCC 10:40 | PROVIDERS: ATTEND Family Medicine | DX: T81.89XD Other complications of procedures, not elsewhere classified, subsequent encounter (principal) | CPT/HCPCS: 97605 ==

== ENCOUNTER 2018-11-30 09:34 | Outpatient (CLI) | payer SELFPAY ==
--- NOTE | 2018-11-30 10:11 | PRG ---
DATE OF SERVICE: 11/30/2018 HISTORY: Ms. Susana Lees is a very pleasant 43-year-old, who presents to the Wound Center for evaluation of 2 wounds of the left foot subsequent to incision and debridement of an extensive left foot abscess on 10/27/[address] Arline Villeda. The patient subsequently underwent intraoperative debridement of the left foot on 10/30/2018 and on 11/01/2018, also by Dr. Villeda. Negative-pressure therapy was initiated subsequent to surgery on 10/27/2018. Upon discharge from [facility], the patient was referred to the Wound Center for assistance with dressing changes of the wound VAC. The patient has received IV antibiotics as per Dr. Elieser Fernandes for osteomyelitis. PHYSICAL EXAMINATION: VITAL SIGNS: Temperature 97.3, pulse 88, blood pressure 148/79. Accu-Chek 118. EXTREMITIES: Two wounds of the left foot are present, which measure approximately 7.5 x 1.4 cm and 10.5 x 2.5 cm. Granulation tissue is present within the margins of each wound. Tendon is exposed within the margins of both wounds. No purulent drainage is associated with either wound. No erythema of the skin surrounding either wound is present. No maceration of the skin of the periwound of either wound is noted. A dorsalis pedis pulse is easily palpable on the left. No significant edema of the left foot is present on exam today. ASSESSMENT AND PLAN: 1. Left foot wound subsequent to incision and debridement of an extensive left foot abscess on 10/27/2018, followed by 2 intraoperative debridements on 10/30/2018 and 11/01/2018. The patient underwent the preceding procedures by Dr. Arline Villeda. Negative-pressure therapy will be continued with dressing changes of the wound VAC here in the Wound Center. As stated above, the patient has received IV antibiotics as per Dr. Eleiser Fernandes of Infectious Diseases for osteomyelitis. I will see Ms. Lees again in 2 weeks. 2. Diabetes mellitus. The patient's Accu-Chek in clinic today is 118. The patient has been reminded that for optimal wound healing, her blood glucoses should remain below 150. 3. Anemia. Job ID: [id number]
[2018-11-30] MEDS ORDERED: Sodium Chloride 0.9% 15 ML NEB ONE (18:00)
== END 2018-11-30 09:35 | disposition home or self-care (01) ==
LOC: WCC 09:34
PROVIDERS: ATTEND Family Medicine
DX: T81.89XD Other complications of procedures, not elsewhere classified, subsequent encounter (principal); E11.9 Type 2 diabetes mellitus without complications; D64.9 Anemia, unspecified
CPT/HCPCS: A4218

== ENCOUNTER 2018-12-04 12:05 | Outpatient (CLI) | payer OTHER, SELFPAY ==
[~2018-12-04 12:05] MED LIST changes: +Lidocaine 2% 11 ML SYR ONE
== END 2018-12-04 12:06 | disposition home or self-care (01) ==
LOC: WCC 12:05
PROVIDERS: ATTEND Family Medicine
DX: T81.89XD Other complications of procedures, not elsewhere classified, subsequent encounter (principal)
CPT/HCPCS: 36416; 97605; A4218

== ENCOUNTER 2018-12-07 16:10 | Outpatient (CLI) | payer SELFPAY ==
[~2018-12-07 16:10] MED LIST changes: -Lidocaine 2% 11 ML SYR ONE
== END 2018-12-07 16:11 | disposition home or self-care (01) ==
LOC: WCC 16:10
PROVIDERS: ATTEND Family Medicine
DX: T81.89XD Other complications of procedures, not elsewhere classified, subsequent encounter (principal)
CPT/HCPCS: 97605; A4218

== ENCOUNTER 2018-12-12 08:55 | Outpatient (CLI) | payer SELFPAY ==
[2018-12-12] MEDS ORDERED: Sodium Chloride 0.9% 15 ML NEB ONE (09:00)
== END 2018-12-12 08:56 | disposition home or self-care (01) ==
LOC: WCC 08:55
PROVIDERS: ATTEND Family Medicine
DX: T81.89XD Other complications of procedures, not elsewhere classified, subsequent encounter (principal)
CPT/HCPCS: 36416; 97605; A4218

== ENCOUNTER 2018-12-15 09:45 | Outpatient (CLI) | payer SELFPAY ==
[2018-12-15] MEDS ORDERED: Sodium Chloride 0.9% 15 ML NEB ONE (10:00)
== END 2018-12-15 09:46 | disposition home or self-care (01) ==
LOC: WCC 09:45
PROVIDERS: ATTEND Family Medicine
DX: T81.89XD Other complications of procedures, not elsewhere classified, subsequent encounter (principal)
CPT/HCPCS: 97605; A4218

== ENCOUNTER 2018-12-18 14:50 | Outpatient (CLI) | payer SELFPAY ==
[2018-12-18] MEDS ORDERED: Sodium Chloride 0.9% 15 ML NEB ONE (17:51)
== END 2018-12-18 14:51 | disposition home or self-care (01) ==
LOC: WCC 14:50
PROVIDERS: ATTEND Family Medicine
DX: T81.89XD Other complications of procedures, not elsewhere classified, subsequent encounter (principal)
CPT/HCPCS: 97605; A4218

== ENCOUNTER 2018-12-21 14:20 | Outpatient (CLI) | payer SELFPAY | END 2018-12-21 14:21 | disposition home or self-care (01) | LOC: WCC 14:20 | PROVIDERS: ATTEND Family Medicine | DX: T81.89XD Other complications of procedures, not elsewhere classified, subsequent encounter (principal) | CPT/HCPCS: 97605; A4218 ==

== ENCOUNTER 2018-12-26 09:38 | Outpatient (CLI) | payer SELFPAY | END 2018-12-26 09:39 | disposition home or self-care (01) | LOC: WCC 09:38 | PROVIDERS: ATTEND Family Medicine | DX: T81.89XD Other complications of procedures, not elsewhere classified, subsequent encounter (principal) | CPT/HCPCS: 36416; 97605; A4218 ==

== ENCOUNTER 2018-12-29 14:46 | Outpatient (CLI) | payer SELFPAY | END 2018-12-29 14:47 | disposition home or self-care (01) | LOC: WCC 14:46 | PROVIDERS: ATTEND Family Medicine | DX: T81.89XD Other complications of procedures, not elsewhere classified, subsequent encounter (principal) | CPT/HCPCS: 97605; A4218 ==

== ENCOUNTER 2019-01-01 10:07 | Outpatient (CLI) | payer SELFPAY ==
--- NOTE | 2019-01-01 10:53 | PRG ---
DATE OF SERVICE: 01/01/2019 HISTORY: Ms. Susana Lees is a very pleasant 43-year-old who presents to the Wound Center for evaluation of 2 wounds of the left foot subsequent to incision and debridement of an extensive left foot abscess on 10/27/[address] Arline Villeda. The patient subsequently underwent intraoperative debridement of the left foot on 10/30/2018 and on 11/01/[address] Villeda. Negative pressure therapy was initiated subsequent to surgery on 10/27/2018. Upon discharge from [facility], the patient was referred to the Wound Center for assistance with dressing changes of the wound VAC. The patient has received IV antibiotics as per Dr. Elieser Fernandes for osteomyelitis. PHYSICAL EXMINATION: VITAL SIGNS: Temperature 97.8, pulse 83, respirations 18, blood pressure 149/81. Accu-Chek 252. EXTREMITIES: Two wounds of the left foot are present which measure approximately 8.2 x 2.8 cm and 1.0 x 0.3 cm. Granulation tissue is present within the margins of each wound. Tendon is exposed within the margins of the larger wound. No purulent drainage is associated with either wound. No erythema of the skin surrounding either wound is present. No maceration of the skin of the periwound of either wound is noted. No significant edema of the left foot is appreciated on exam today. ASSESSMENT AND PLAN: 1. Left foot wounds subsequent to incision and debridement of an extensive left foot abscess on 10/27/2018, followed by 2 intraoperative debridements on 10/30/2018 and 11/01/2018. The patient underwent the preceding procedures by Dr. Arline Villeda. Negative pressure therapy will be continued with dressing changes of the wound VAC here in the Wound Center. As stated above, the patient has received IV antibiotics as per Dr. Elieser Fernandes of Infectious Diseases for osteomyelitis. I will see Ms. Lees again in 2 weeks. 2. Diabetes mellitus. The patient's Accu-Chek in clinic today is 252. The patient has been reminded that for optimal wound healing, her blood glucoses should remain below 150. 3. Anemia. Job ID: [id number]
[2019-01-01] MEDS ORDERED: Sodium Chloride 0.9% 15 ML NEB ONE (18:00)
== END 2019-01-01 10:08 | disposition home or self-care (01) ==
LOC: WCC 10:07
PROVIDERS: ATTEND Family Medicine
DX: T81.89XD Other complications of procedures, not elsewhere classified, subsequent encounter (principal); E11.9 Type 2 diabetes mellitus without complications; D64.9 Anemia, unspecified
CPT/HCPCS: 36416; A4218

== ENCOUNTER 2019-01-05 13:44 | Outpatient (CLI) | payer SELFPAY ==
[2019-01-05] MEDS ORDERED: Sodium Chloride 0.9% 15 ML NEB ONE (18:00)
== END 2019-01-05 13:45 | disposition home or self-care (01) ==
LOC: WCC 13:44
PROVIDERS: ATTEND Family Medicine
DX: T81.89XD Other complications of procedures, not elsewhere classified, subsequent encounter (principal)
CPT/HCPCS: 97605; A4218

== ENCOUNTER 2019-01-09 15:55 | Outpatient (CLI) | payer SELFPAY ==
[2019-01-09] MEDS ORDERED: Sodium Chloride 0.9% 15 ML NEB ONE (18:00)
== END 2019-01-09 15:56 | disposition home or self-care (01) ==
LOC: WCC 15:55
PROVIDERS: ATTEND Family Medicine
DX: T81.89XD Other complications of procedures, not elsewhere classified, subsequent encounter (principal)
CPT/HCPCS: A4218

== ENCOUNTER 2019-01-12 14:28 | Outpatient (CLI) | payer SELFPAY | END 2019-01-12 14:29 | disposition home or self-care (01) | LOC: WCC 14:28 | PROVIDERS: ATTEND Family Medicine | DX: T81.89XD Other complications of procedures, not elsewhere classified, subsequent encounter (principal) | CPT/HCPCS: 97605; A4218 ==

== ENCOUNTER 2019-01-16 13:16 | Outpatient (CLI) | payer SELFPAY ==
[2019-01-16] MEDS ORDERED: Sodium Chloride 0.9% 15 ML NEB ONE ×2 (18:00→21:33)
== END 2019-01-16 13:17 | disposition home or self-care (01) ==
LOC: WCC 13:16
PROVIDERS: ATTEND Family Medicine
DX: T81.89XD Other complications of procedures, not elsewhere classified, subsequent encounter (principal)
CPT/HCPCS: 97605; A4218

== ENCOUNTER 2019-01-19 14:44 | Outpatient (CLI) | payer SELFPAY | END 2019-01-19 14:45 | disposition home or self-care (01) | LOC: WCC 14:44 | PROVIDERS: ATTEND Family Medicine | DX: T81.89XD Other complications of procedures, not elsewhere classified, subsequent encounter (principal) | CPT/HCPCS: 97605 ==

== ENCOUNTER 2019-01-22 10:44 | Outpatient (CLI) | payer SELFPAY ==
--- NOTE | 2019-01-22 11:47 | PRG ---
DATE OF SERVICE: 01/22/2019 HISTORY OF PRESENT ILLNESS: Ms. Susana Lees is a very pleasant 43-year-old, who presents to the Wound Center for evaluation of two wounds of the left foot subsequent to incision and debridement of an extensive left foot abscess on 10/27/[address] Arline Villeda. The patient subsequently underwent intraoperative debridement of the left foot on 10/30/2018 and on 11/01/[address] Villeda. Negative pressure therapy was initiated subsequent to surgery on 10/27/2018. Upon discharge from [facility], the patient was referred to the Wound Center for assistance with dressing changes of the wound VAC. The patient has received IV antibiotics as per Dr. Elieser Fernandes for osteomyelitis. PHYSICAL EXAMINATION: VITAL SIGNS: Temperature 97.7, pulse 92, respirations 16, blood pressure 141/73. Accu-Chek 138. EXTREMITIES: Only one wound of the left foot remains. The dimensions of the wound are approximately 7.0 x 2.2 cm. Granulation tissue was present within the wound margins. No purulent drainage is associated with the wound. No erythema of the skin surrounding the wound is present. No maceration of the skin of the periwound is noted. No significant edema of the left foot is present on exam today. ASSESSMENT AND PLAN: 1. Left foot wound subsequent to incision and debridement of an extensive left foot abscess on 10/27/2018, followed by 2 intraoperative debridements on 10/30/2018 and 11/01/2018. The patient underwent the preceding procedures by Dr. Arline Villeda. As stated above, only one wound of the left foot remains. Negative pressure therapy will be continued with dressing changes of the wound VAC here in the Wound Center. As stated above, the patient has received IV antibiotics as per Dr. Elieser Fernandes of Infectious Diseases for osteomyelitis. The patient will be seen by Dr. Villeda in 1 week. I will see Ms. Lees again in 2 weeks. 2. Diabetes mellitus. The patient's Accu-Chek in clinic today is 138. The patient has been reminded that for optimal wound healing, her blood glucoses should remain below 150. 3. Anemia. Job ID: [id number]
[2019-01-22] MEDS ORDERED: Sodium Chloride 0.9% 15 ML NEB ONE (17:39)
== END 2019-01-22 10:45 | disposition home or self-care (01) ==
LOC: WCC 10:44
PROVIDERS: ATTEND Family Medicine
DX: T81.89XD Other complications of procedures, not elsewhere classified, subsequent encounter (principal); E11.9 Type 2 diabetes mellitus without complications; D64.9 Anemia, unspecified
CPT/HCPCS: 97605; A4218

== ENCOUNTER 2019-01-25 09:43 | Outpatient (CLI) | payer SELFPAY ==
[2019-01-25] MEDS ORDERED: Sodium Chloride 0.9% 15 ML NEB ONE (17:19)
== END 2019-01-25 09:44 | disposition home or self-care (01) ==
LOC: WCC 09:43
PROVIDERS: ATTEND Family Medicine
DX: T81.89XD Other complications of procedures, not elsewhere classified, subsequent encounter (principal)
CPT/HCPCS: 97605; A4218

== ENCOUNTER 2019-01-30 10:59 | Outpatient (CLI) | payer SELFPAY ==
[2019-01-30] MEDS ORDERED: Sodium Chloride 0.9% 15 ML NEB ONE (15:00)
== END 2019-01-30 11:00 | disposition home or self-care (01) ==
LOC: WCC 10:59
PROVIDERS: ATTEND Family Medicine
DX: T81.89XD Other complications of procedures, not elsewhere classified, subsequent encounter (principal)
CPT/HCPCS: 97605; A4218

== ENCOUNTER 2019-02-07 09:41 | Outpatient (CLI) | payer SELFPAY ==
--- NOTE | 2019-02-07 11:04 | PRG ---
DATE OF SERVICE: 02/07/2019 HISTORY: Ms. Susana Lees is a very pleasant 43-year-old, who presents to [facility] for evaluation of 2 wounds of the left foot subsequent to incision and debridement of an extensive left foot abscess on 10/27/[address] Arline Villeda. The patient subsequently underwent intraoperative debridement of the left foot on 10/30/2018 and on 11/01/[address] Villeda. Negative pressure therapy was initiated subsequent to surgery on 10/27/2018. Upon discharge from [facility], the patient was referred to the [facility]ound Center for assistance with dressing changes of the wound VAC. The patient has received IV antibiotics as per Dr. Elieser Fernandes for osteomyelitis. Since the patient's visit on 01/22/2019, negative pressure therapy has been discontinued and the patient is now receiving dressing changes of Promogran. PHYSICAL EXAMINATION: VITAL SIGNS: Temperature 97.4, pulse 101, respirations 18, blood pressure 139/76. Accu-Chek 149. EXTREMITIES: Only one wound of the left foot remains. The dimensions of the wound are approximately 6.3 x 1.8 cm. Granulation tissue is present within the wound margins. No purulent drainage is associated with the wound. No erythema of the skin surrounding the wound is present. No maceration of the skin of the periwound is noted. No significant edema of the left foot is present on exam today. ASSESSMENT AND PLAN: 1. Left foot wound subsequent to incision and debridement of an extensive left foot abscess on 10/27/2018, followed by 2 intraoperative debridements on 10/30/2018 and 11/01/2018. The patient underwent the preceding procedures by Dr. Arline Villeda. As stated above, only one wound of the left foot remains. The patient has completed a course of negative pressure therapy and dressing changes of Promogran will be continued. The patient will continue to perform her own dressing changes. As stated above, the patient has received IV antibiotics as per Dr. Elieser Fernandes of Infectious Diseases for osteomyelitis. The patient will be seen by Dr. Villeda in 1 week. I will see Ms. Lees again in 2 weeks. 2. Diabetes mellitus. The patient's Accu-Chek in clinic today is 149. The patient has been reminded that for optimal wound healing, her blood glucoses should remain below 150. 3. Anemia. Job ID: [id number]
== END 2019-02-07 09:42 | disposition home or self-care (01) ==
LOC: WCC 09:41
PROVIDERS: ATTEND Family Medicine
DX: T81.89XD Other complications of procedures, not elsewhere classified, subsequent encounter (principal); E11.9 Type 2 diabetes mellitus without complications; D64.9 Anemia, unspecified
CPT/HCPCS: 97602; A4218

== ENCOUNTER 2020-04-22 14:30 | Emergency (ER) | payer OTHER ==
[2020-04-22 17:17] LABS: #Eosinphils 0.2 thou/uL (0.0-0.7); #Lymphocytes 2.3 thou/uL (1.20-3.40); #Monocytes 0.7 thou/uL (0.11-0.59); #Neutrophils 9.4 thou/uL (1.40-6.50); %Basophils 0.2 % (0.0-1.0); %Eosinophils 1.4 % (0.0-10.0); %Lymphocytes 18.6 % (21.0-51.0); %Monocytes 5.5 % (0.0-10.0); %Neutrophils 74.3 % (42.0-75.0); Hemoglobin 14.4 g/dL (12.0-16.0); Mean Corpuscular HGB CONC 33.1 g/dL (32.0-36.0); Mean Corpuscular Hemoglobin 30.4 pg (27.0-31.0); Mean Corpuscular Volume 91.9 fL (78.0-98.0); Mean Platelet Volume 7.3 fL (7.4-10.4); Platelet Count 267 thou/uL (130-400); RBC Distribution Width 13.2 % (11.5-14.5); Red Blood Cell (RBC) Count 4.73 mill/uL (4.20-5.40); White Blood Cell (WBC) Count 12.6 thou/uL (4.8-10.8)
[2020-04-22 17:39] LABS: ALT (SGPT) 8 U/L (8-55); AST (SGOT) 9 U/L (5-34); Albumin 4.3 g/dL (3.5-5.0); Alkaline Phosphatase 104 U/L (40-110); Anion Gap 12 mmol/L (10-20); BUN (Urea Nitrogen) 18 mg/dL (7.0-18.7); Bilirubin, Total 0.7 mg/dL (0.2-1.2); CRP (Inflammatory) 10.24 mg/dL (= or < 0.5); Calc. Creatinine Clearance 0 mL/min (70-130); Calcium 9.5 mg/dL (7.8-10.44); Carbon Dioxide 27 mmol/L (22-29); Chloride 101 mmol/L (98-107); Estimated GFR-MDRD 81; Globulin 3.6 g/dL (2.4-3.5); Glucose 176 mg/dL (70-105); Potassium 3.4 mmol/L (3.5-5.1); Protein, Total 7.9 g/dL (6.0-8.3); Sodium 137 mmol/L (136-145)
--- NOTE | 2020-04-22 18:05 | RAD ---
RIGHT FOOT: 04/22/20 Three views. HISTORY: Wound bottom of right toe with drainage. History of diabetes. Comparison made to right foot films from 2016. The tarsals appear unremarkable. Metatarsals and phalanges are intact. The MTP joints are unremarkabl e. No lytic or destructive process. An area of lucency in the proximal phalanx of the great toe desc ribed on the prior exam is stable and does not represent a lytic lesion. There is soft tissue swelling in the forefoot along the plantar aspect. IMPRESSION: No acute osseous abnormality identified. POS: AGW
== END 2020-04-22 18:27 | disposition home or self-care (01) ==
LOC: ERS 14:30
DX: E11.69 Type 2 diabetes mellitus with other specified complication (principal); L84 Corns and callosities; L08.9 Local infection of the skin and subcutaneous tissue, unspecified
CPT/HCPCS: 36415; 80053; 85025; 85652; 86140

== ENCOUNTER 2020-10-31 01:29 | Emergency (ER) | payer SELFPAY ==
[2020-10-31] MEDS ORDERED: Ondansetron ODT 4 MG TAB ONE (01:49)
== END 2020-10-31 02:58 | disposition home or self-care (01) ==
LOC: ERS 01:29
DX: R11.2 Nausea with vomiting, unspecified (principal); E11.9 Type 2 diabetes mellitus without complications
CPT/HCPCS: 36416; 99284; Q0162

== ENCOUNTER 2021-06-23 19:37 | Emergency (ER) | payer SELFPAY ==
[2021-06-23] MEDS ORDERED: Bacitracin 1 PK ONE (21:12)
== END 2021-06-23 21:33 | disposition home or self-care (01) ==
LOC: ERS 19:37
DX: L03.031 Cellulitis of right toe (principal); E11.621 Type 2 diabetes mellitus with foot ulcer; L97.519 Non-pressure chronic ulcer of other part of right foot with unspecified severity

== ENCOUNTER 2021-09-28 09:16 | Inpatient (IN) | payer SELFPAY ==
[2021-09-28 10:20] LABS: Hemoglobin 12.2 g/dL (12.0-16.0); Mean Corpuscular HGB CONC 31.8 g/dL (32.0-36.0); Mean Corpuscular Hemoglobin 27.5 pg (27.0-31.0); Mean Corpuscular Volume 86.7 fL (78.0-98.0); Mean Platelet Volume 6.8 fL (7.4-10.4); Platelet Count 294 thou/uL (130-400); RBC Distribution Width 13.6 % (11.5-14.5); Red Blood Cell (RBC) Count 4.44 mill/uL (4.20-5.40); White Blood Cell (WBC) Count 21.6 thou/uL (4.8-10.8)
[2021-09-28 10:39] LABS: ALT (SGPT) 8 U/L (8-55); AST (SGOT) 11 U/L (5-34); Albumin 4.3 g/dL (3.5-5.0); Alkaline Phosphatase 124 U/L (40-110); Anion Gap 17 mmol/L (10-20); BUN (Urea Nitrogen) 15 mg/dL (7.0-18.7); Calc. Creatinine Clearance 0 mL/min (70-130); Calcium 9.3 mg/dL (7.8-10.44); Carbon Dioxide 19 mmol/L (22-29); Chloride 100 mmol/L (98-107); Globulin 4.3 g/dL (2.4-3.5); Glucose 183 mg/dL (70-105); Potassium 3.7 mmol/L (3.5-5.1); Protein, Total 8.6 g/dL (6.0-8.3); Sodium 132 mmol/L (136-145)
[2021-09-28 10:49] LABS: Band 9 % (5-11); Lymphocytes 11 % (21-51); MDiff Complete? YES; Monocytes 5 % (0-10); Neutrophil 75 % (42-75); Platelet Morphology Comment Appears Adequate; RBC Morphology Normal
[2021-09-28] MEDS ORDERED: Cefepime 2 GM VIAL ONE (11:09)
[2021-09-28] MEDS ORDERED: Dextrose 5% in Water 1,000 ML IV PRN (11:19)
[2021-09-28] MEDS ORDERED: HumaLOG 300 UNITS/3 ML VIAL SC PRN (11:19)
[2021-09-28] MEDS ORDERED: Dextrose 50% Abboject 50 ML SYRINGE SLOW IVP PRN (11:19)
[2021-09-28] MEDS ORDERED: Sodium Chloride 0.9% 1,000 ML IV SCH (11:30)
[2021-09-28] MEDS ORDERED: Acetaminophen 325 MG TAB PO PRN (11:58)
[2021-09-28] MEDS ORDERED: HYDROcodone/Acetaminophen 5/325 mg Tablet PO PRN ×2 (11:58)
[2021-09-28] MEDS ORDERED: Senokot S 8.6-50 MG TAB PO PRN (11:58)
[2021-09-28] MEDS ORDERED: Ondansetron PF 4 MG/2 ML Vial IVP PRN (11:58)
[2021-09-28] MEDS ORDERED: Calcium Carbonate 500 MG ChewTAB PO PRN (11:58)
[2021-09-28] MEDS ORDERED: Ondansetron ODT 4 MG TAB PO PRN (11:58)
[2021-09-28] MEDS ORDERED: metroNIDAZOLE 500 MG in Premix Bag 1 BAG IVPB SCH (12:00)
[2021-09-28] MEDS ORDERED: Vancomycin 1 GM/200 ML BAG ONE (12:36)
[2021-09-28 14:40] VITALS: BMI 28.4
[2021-09-28] MEDS ORDERED: FLU VACC QS2021-22(6MOS UP)/PF 60 MCG/0.5 ML SYRINGE IM ONE (15:45)
[2021-09-28] MEDS: cefTRIAXone\\ROCEPHIN 2 GM in Sodium Chloride 0.9% 100 ML IVPB SCH (17:44)
[2021-09-28] MEDS: HumaLOG 300 UNITS/3 ML VIAL SC PRN (17:45)
[2021-09-28 18:30] LABS: SARS-CoV-2 NAA Rapid Test Not Detected (NotDetected)
[2021-09-28] MEDS: Famotidine 20 MG TAB PO SCH (20:47)
[2021-09-28] MEDS ORDERED: Cefepime 1 GM in Sodium Chloride 0.9% 100 ML IVPB SCH ×2 (21:00→23:00)
[2021-09-28] MEDS: metroNIDAZOLE 500 MG in Premix Bag 1 BAG IVPB SCH (21:34)
[2021-09-29] MEDS: Vancomycin 1 GM in Premix Bag 1 BAG IVPB SCH ×3 (01:27→22:04)
[2021-09-29 02:50] LABS: Bilirubin Negative (Negative); Blood, Urine 3+ (Negative); Clarity Clear (Clear); Glucose, Urine (Dipstick) Greater than 1000 mg/dL (Negative); Ketone, Urine Negative (Negative); Leukocyte Negative Leu/uL (Negative); Nitrite Negative (Negative); Protein, Urine (Dipstick) Negative (Neg-Trace); Specific Gravity, Urine 1.014 (1.002-1.036); Urobilinogen Normal mg/dL (Less than 2)
[2021-09-29 02:54] LABS: Bacteria/HPF 1+ HPF (None Seen)
[2021-09-29] MEDS: Enoxaparin Sodium 40 MG/0.4 ML SYRINGE SC SCH (05:47)
[2021-09-29 06:13] LABS: #Eosinphils 0.1 thou/uL (0.0-0.7); #Monocytes 0.9 thou/uL (0.11-0.59); #Neutrophils 14.6 thou/uL (1.40-6.50); %Basophils 0.1 % (0.0-1.0); %Eosinophils 0.5 % (0.0-10.0); %Lymphocytes 5.9 % (21.0-51.0); %Monocytes 5.7 % (0.0-10.0); %Neutrophils 87.9 % (42.0-75.0); Hemoglobin 10.1 g/dL (12.0-16.0); Mean Corpuscular HGB CONC 32.5 g/dL (32.0-36.0); Mean Corpuscular Hemoglobin 28.5 pg (27.0-31.0); Mean Corpuscular Volume 87.7 fL (78.0-98.0); Platelet Count 254 thou/uL (130-400); RBC Distribution Width 13.6 % (11.5-14.5); Red Blood Cell (RBC) Count 3.53 mill/uL (4.20-5.40); White Blood Cell (WBC) Count 16.6 thou/uL (4.8-10.8)
[2021-09-29 06:27] LABS: Anion Gap 10 mmol/L (10-20); BUN (Urea Nitrogen) 12 mg/dL (7.0-18.7); Calc. Creatinine Clearance 111 mL/min (70-130); Calcium 8.2 mg/dL (7.8-10.44); Carbon Dioxide 20 mmol/L (22-29); Chloride 106 mmol/L (98-107); Glucose 165 mg/dL (70-105); Potassium 3.4 mmol/L (3.5-5.1); Sodium 133 mmol/L (136-145)
[2021-09-29 07:03] LABS: Hemoglobin A1c 7.8 % (4.0-6.0)
[2021-09-29] MEDS: metroNIDAZOLE 500 MG in Premix Bag 1 BAG IVPB SCH ×3 (08:23→21:30)
[2021-09-29] MEDS: Famotidine 20 MG TAB PO SCH ×2 (08:27→21:01)
[2021-09-29] MEDS ORDERED: Fentanyl 100 MCG/2 ML VIAL ONE ×3 (12:13→14:21)
[2021-09-29] MEDS ORDERED: Bupivacaine 0.25% 10 ML VIAL ONE (12:38)
[2021-09-29] MEDS ORDERED: Lidocaine 1% w/Epinephrine 1:100K 30 ML VIAL ONE (12:38)
[2021-09-29] MEDS ORDERED: Ketorolac Tromethamine 30 MG/ML VIAL ONE (12:39)
[2021-09-29] MEDS ORDERED: Ondansetron PF 4 MG/2 ML Vial ONE (12:39)
[2021-09-29] MEDS ORDERED: PROPOFOL 200 MG/20 ML VIAL ONE (12:39)
[2021-09-29] MEDS ORDERED: Lidocaine 1% PF 5 ML VIAL ONE (12:39)
[2021-09-29] MEDS ORDERED: Ondansetron HCl/PF 4 MG/2 ML Vial IVP PRN (13:55)
[2021-09-29] MEDS ORDERED: Promethazine HCl 25 MG/ML VIAL IM PRN (13:55)
[2021-09-29] MEDS ORDERED: Promethazine HCl 25 MG/ML VIAL IVPB PRN (13:55)
[2021-09-29] MEDS ORDERED: HYDROcodone/Acetaminophen 5/325 mg Tablet PO PRN (15:08)
[2021-09-29] MEDS: Sodium Chloride 0.9% 1,000 ML IV SCH ×2 (15:41→15:45)
[2021-09-29 15:49] LABS: Vancomycin, Trough 4.6 ug/mL
[2021-09-29] MEDS: Ferrous Sulfate 325 MG TAB PO SCH (18:15)
[2021-09-29] MEDS: cefTRIAXone\\ROCEPHIN 2 GM in Sodium Chloride 0.9% 100 ML IVPB SCH (19:23)
[2021-09-29] MEDS ORDERED: Potassium Chloride 20 MEQ TAB PO SCH (21:00)
[2021-09-29] MEDS: Atorvastatin Calcium 40 MG TAB PO SCH (21:01)
[2021-09-29] MEDS: HYDROcodone/Acetaminophen 5/325 mg Tablet PO PRN (21:31)
[2021-09-30] MEDS ORDERED: Piperacillin/Tazobactam 3.375 GM in Sodium Chloride 0.9% 100 ML IVPB SCH ×3 (05:00→14:00)
[2021-09-30] MEDS: Vancomycin 1 GM in Premix Bag 1 BAG IVPB SCH ×4 (05:22→20:08)
[2021-09-30 05:51] LABS: #Eosinphils 0.1 thou/uL (0.0-0.7); #Lymphocytes 1.3 thou/uL (1.20-3.40); #Monocytes 0.8 thou/uL (0.11-0.59); #Neutrophils 8.9 thou/uL (1.40-6.50); %Basophils 0.2 % (0.0-1.0); %Eosinophils 1.2 % (0.0-10.0); %Lymphocytes 11.4 % (21.0-51.0); %Monocytes 7.3 % (0.0-10.0); Hemoglobin 9.4 g/dL (12.0-16.0); Mean Corpuscular HGB CONC 32.5 g/dL (32.0-36.0); Mean Corpuscular Hemoglobin 28.9 pg (27.0-31.0); Mean Corpuscular Volume 88.7 fL (78.0-98.0); Mean Platelet Volume 6.8 fL (7.4-10.4); Platelet Count 238 thou/uL (130-400); RBC Distribution Width 13.4 % (11.5-14.5); Red Blood Cell (RBC) Count 3.25 mill/uL (4.20-5.40); White Blood Cell (WBC) Count 11.1 thou/uL (4.8-10.8)
[2021-09-30 06:16] LABS: Anion Gap 8 mmol/L (10-20); BUN (Urea Nitrogen) 16 mg/dL (7.0-18.7); Calc. Creatinine Clearance 103 mL/min (70-130); Calcium 8.3 mg/dL (7.8-10.44); Carbon Dioxide 23 mmol/L (22-29); Chloride 107 mmol/L (98-107); Glucose 189 mg/dL (70-105); Magnesium 2.2 mg/dL (1.6-2.6); Sodium 134 mmol/L (136-145)
[2021-09-30] MEDS: Lisinopril 2.5 MG TAB PO SCH (09:09)
[2021-09-30] MEDS: Ferrous Sulfate 325 MG TAB PO SCH ×2 (09:10→17:01)
[2021-09-30] MEDS: Aspirin 81 mg Enteric Coated Tablet PO SCH (09:10)
[2021-09-30] MEDS: Famotidine 20 MG TAB PO SCH ×2 (10:37→20:07)
[2021-09-30] MEDS: Enoxaparin Sodium 40 MG/0.4 ML SYRINGE SC SCH (10:37)
[2021-09-30] MEDS: HumaLOG 300 UNITS/3 ML VIAL SC PRN ×2 (11:57→17:00)
[2021-09-30] MEDS: cefTRIAXone\\ROCEPHIN 2 GM in Sodium Chloride 0.9% 100 ML IVPB SCH (15:43)
[2021-09-30] MEDS: Atorvastatin Calcium 40 MG TAB PO SCH (20:07)
[2021-09-30] MEDS: HYDROcodone/Acetaminophen 5/325 mg Tablet PO PRN (20:07)
[2021-10-01] MEDS: Piperacillin/Tazobactam 3.375 GM in Sodium Chloride 0.9% 100 ML IVPB SCH ×3 (01:04→17:31)
[2021-10-01 04:30] LABS: #Eosinphils 0.2 thou/uL (0.0-0.7); #Lymphocytes 1.7 thou/uL (1.20-3.40); #Monocytes 0.8 thou/uL (0.11-0.59); #Neutrophils 6.6 thou/uL (1.40-6.50); %Basophils 0.2 % (0.0-1.0); %Eosinophils 2.5 % (0.0-10.0); %Lymphocytes 18.3 % (21.0-51.0); %Monocytes 8.6 % (0.0-10.0); %Neutrophils 70.3 % (42.0-75.0); Mean Corpuscular HGB CONC 33.4 g/dL (32.0-36.0); Mean Corpuscular Hemoglobin 29.7 pg (27.0-31.0); Mean Corpuscular Volume 88.9 fL (78.0-98.0); Mean Platelet Volume 6.6 fL (7.4-10.4); Platelet Count 256 thou/uL (130-400); RBC Distribution Width 13.4 % (11.5-14.5); Red Blood Cell (RBC) Count 3.02 mill/uL (4.20-5.40); White Blood Cell (WBC) Count 9.4 thou/uL (4.8-10.8)
[2021-10-01 04:50] LABS: Vancomycin, Trough 13.7 ug/mL
[2021-10-01 04:51] LABS: Anion Gap 11 mmol/L (10-20); BUN (Urea Nitrogen) 12 mg/dL (7.0-18.7); Calc. Creatinine Clearance 111 mL/min (70-130); Calcium 8.3 mg/dL (7.8-10.44); Carbon Dioxide 21 mmol/L (22-29); Chloride 106 mmol/L (98-107); Glucose 201 mg/dL (70-105); Potassium 3.9 mmol/L (3.5-5.1); Sodium 134 mmol/L (136-145)
[2021-10-01] MEDS: Vancomycin 1 GM in Premix Bag 1 BAG IVPB SCH ×3 (05:48→20:18)
[2021-10-01] MEDS: HumaLOG 300 UNITS/3 ML VIAL SC PRN (05:48)
[2021-10-01] MEDS: Lisinopril 2.5 MG TAB PO SCH (09:59)
[2021-10-01] MEDS: Aspirin 81 mg Enteric Coated Tablet PO SCH (09:59)
[2021-10-01] MEDS: Famotidine 20 MG TAB PO SCH ×2 (10:00→20:18)
[2021-10-01] MEDS: Enoxaparin Sodium 40 MG/0.4 ML SYRINGE SC SCH (10:00)
[2021-10-01] MEDS: Ferrous Sulfate 325 MG TAB PO SCH ×2 (10:00→17:31)
[2021-10-01] MEDS: Lantus 1000 UNITS/10 ML VIAL SC SCH (10:00)
[2021-10-01] MEDS: traMADol HCl 50 MG TAB PO PRN (10:05)
[2021-10-01] MEDS: cefTRIAXone\\ROCEPHIN 2 GM in Sodium Chloride 0.9% 100 ML IVPB SCH (17:32)
[2021-10-01] MEDS: Atorvastatin Calcium 40 MG TAB PO SCH (20:17)
[2021-10-01] MEDS: HYDROcodone/Acetaminophen 5/325 mg Tablet PO PRN (22:22)
[2021-10-02] MEDS: Piperacillin/Tazobactam 3.375 GM in Sodium Chloride 0.9% 100 ML IVPB SCH ×3 (02:00→16:41)
[2021-10-02 04:44] LABS: #Eosinphils 0.4 thou/uL (0.0-0.7); #Lymphocytes 2.4 thou/uL (1.20-3.40); #Monocytes 0.6 thou/uL (0.11-0.59); #Neutrophils 4.9 thou/uL (1.40-6.50); %Basophils 0.5 % (0.0-1.0); %Eosinophils 5.3 % (0.0-10.0); %Lymphocytes 28.9 % (21.0-51.0); %Monocytes 7.5 % (0.0-10.0); %Neutrophils 57.9 % (42.0-75.0); Hemoglobin 9.7 g/dL (12.0-16.0); Mean Corpuscular Hemoglobin 30.1 pg (27.0-31.0); Mean Corpuscular Volume 88.4 fL (78.0-98.0); Mean Platelet Volume 6.7 fL (7.4-10.4); Platelet Count 312 thou/uL (130-400); RBC Distribution Width 13.5 % (11.5-14.5); Red Blood Cell (RBC) Count 3.21 mill/uL (4.20-5.40); White Blood Cell (WBC) Count 8.4 thou/uL (4.8-10.8)
[2021-10-02 05:03] LABS: Anion Gap 11 mmol/L (10-20); BUN (Urea Nitrogen) 16 mg/dL (7.0-18.7); Calc. Creatinine Clearance 97 mL/min (70-130); Calcium 8.4 mg/dL (7.8-10.44); Carbon Dioxide 23 mmol/L (22-29); Chloride 104 mmol/L (98-107); Glucose 184 mg/dL (70-105); Magnesium 2.1 mg/dL (1.6-2.6); Sodium 134 mmol/L (136-145)
[2021-10-02] MEDS: Vancomycin 1 GM in Premix Bag 1 BAG IVPB SCH ×3 (05:32→20:39)
[2021-10-02] MEDS: Lisinopril 2.5 MG TAB PO SCH (08:39)
[2021-10-02] MEDS: Ferrous Sulfate 325 MG TAB PO SCH ×2 (08:40→16:41)
[2021-10-02] MEDS: Famotidine 20 MG TAB PO SCH ×2 (08:40→20:39)
[2021-10-02] MEDS: Lantus 1000 UNITS/10 ML VIAL SC SCH (08:40)
[2021-10-02] MEDS: Aspirin 81 mg Enteric Coated Tablet PO SCH (08:40)
[2021-10-02] MEDS: Enoxaparin Sodium 40 MG/0.4 ML SYRINGE SC SCH (08:41)
[2021-10-02] MEDS: HumaLOG 300 UNITS/3 ML VIAL SC PRN ×2 (11:17→16:41)
[2021-10-02] MEDS: cefTRIAXone\\ROCEPHIN 2 GM in Sodium Chloride 0.9% 100 ML IVPB SCH (16:42)
[2021-10-02] MEDS: Atorvastatin Calcium 40 MG TAB PO SCH (20:39)
[2021-10-02] MEDS: HYDROcodone/Acetaminophen 5/325 mg Tablet PO PRN (21:33)
[2021-10-03] MEDS: Piperacillin/Tazobactam 3.375 GM in Sodium Chloride 0.9% 100 ML IVPB SCH ×3 (01:19→17:48)
[2021-10-03 04:31] LABS: #Eosinphils 0.5 thou/uL (0.0-0.7); #Lymphocytes 2.4 thou/uL (1.20-3.40); #Monocytes 0.6 thou/uL (0.11-0.59); %Basophils 0.5 % (0.0-1.0); %Lymphocytes 31.9 % (21.0-51.0); %Monocytes 7.6 % (0.0-10.0); Mean Corpuscular HGB CONC 31.5 g/dL (32.0-36.0); Mean Corpuscular Hemoglobin 27.9 pg (27.0-31.0); Mean Corpuscular Volume 88.3 fL (78.0-98.0); Mean Platelet Volume 6.5 fL (7.4-10.4); Platelet Count 369 thou/uL (130-400); RBC Distribution Width 13.2 % (11.5-14.5); Red Blood Cell (RBC) Count 3.59 mill/uL (4.20-5.40); White Blood Cell (WBC) Count 7.5 thou/uL (4.8-10.8)
[2021-10-03 04:48] LABS: Vancomycin, Trough 23.5 ug/mL
[2021-10-03 04:50] LABS: Anion Gap 10 mmol/L (10-20); BUN (Urea Nitrogen) 14 mg/dL (7.0-18.7); Calc. Creatinine Clearance 98 mL/min (70-130); Calcium 9.1 mg/dL (7.8-10.44); Carbon Dioxide 25 mmol/L (22-29); Chloride 102 mmol/L (98-107); Glucose 257 mg/dL (70-105); Potassium 4.5 mmol/L (3.5-5.1); Sodium 132 mmol/L (136-145)
[2021-10-03] MEDS: Vancomycin 1 GM in Premix Bag 1 BAG IVPB SCH ×3 (05:12→21:52)
[2021-10-03] MEDS: HumaLOG 300 UNITS/3 ML VIAL SC PRN ×3 (05:42→17:08)
[2021-10-03] MEDS ORDERED: Vancomycin HCl 750 MG in Sodium Chloride 0.9% 250 ML 250 ML IVPB SCH (06:00)
[2021-10-03] MEDS: traMADol HCl 50 MG TAB PO PRN (08:39)
[2021-10-03] MEDS: Enoxaparin Sodium 40 MG/0.4 ML SYRINGE SC SCH (08:41)
[2021-10-03] MEDS: Famotidine 20 MG TAB PO SCH ×2 (08:41→21:52)
[2021-10-03] MEDS: Ferrous Sulfate 325 MG TAB PO SCH ×2 (08:41→17:03)
[2021-10-03] MEDS: Lisinopril 2.5 MG TAB PO SCH (08:41)
[2021-10-03] MEDS: Aspirin 81 mg Enteric Coated Tablet PO SCH (08:41)
[2021-10-03] MEDS: Lantus 1000 UNITS/10 ML VIAL SC SCH (08:42)
[2021-10-03] MEDS: HYDROcodone/Acetaminophen 5/325 mg Tablet PO PRN (13:09)
[2021-10-03] MEDS ORDERED: cefTRIAXone\\ROCEPHIN 2 GM VIAL ONE (17:05)
[2021-10-03] MEDS: cefTRIAXone\\ROCEPHIN 2 GM in Sodium Chloride 0.9% 100 ML IVPB SCH (17:06)
[2021-10-03] MEDS ORDERED: Vancomycin 1 GM in Premix Bag 1 BAG IVPB SCH (18:00)
[2021-10-03] MEDS: Atorvastatin Calcium 40 MG TAB PO SCH (21:52)
[2021-10-04] MEDS: Piperacillin/Tazobactam 3.375 GM in Sodium Chloride 0.9% 100 ML IVPB SCH ×3 (01:26→18:39)
[2021-10-04] MEDS: HYDROcodone/Acetaminophen 5/325 mg Tablet PO PRN (02:03)
[2021-10-04 06:04] LABS: Vancomycin, Trough 29.2 ug/mL
[2021-10-04] MEDS: Vancomycin 1 GM in Premix Bag 1 BAG IVPB SCH (06:11)
[2021-10-04] MEDS: HumaLOG 300 UNITS/3 ML VIAL SC PRN (06:12)
[2021-10-04] MEDS: Enoxaparin Sodium 40 MG/0.4 ML SYRINGE SC SCH (08:27)
[2021-10-04] MEDS: Ferrous Sulfate 325 MG TAB PO SCH ×2 (08:27→16:20)
[2021-10-04] MEDS: Lisinopril 2.5 MG TAB PO SCH (08:27)
[2021-10-04] MEDS: Famotidine 20 MG TAB PO SCH ×2 (08:27→21:50)
[2021-10-04] MEDS: Aspirin 81 mg Enteric Coated Tablet PO SCH (08:27)
[2021-10-04] MEDS: Lantus 1000 UNITS/10 ML VIAL SC SCH (08:28)
[2021-10-04] MEDS: cefTRIAXone\\ROCEPHIN 2 GM in Sodium Chloride 0.9% 100 ML IVPB SCH (16:19)
[2021-10-04] MEDS ORDERED: Vancomycin 1 GM in Premix Bag 1 BAG IVPB SCH (18:00)
[2021-10-04] MEDS: Atorvastatin Calcium 40 MG TAB PO SCH (21:50)
[2021-10-05] MEDS: HYDROcodone/Acetaminophen 5/325 mg Tablet PO PRN (00:33)
[2021-10-05 08:37] VITALS: BP 127/80; TEMP 97
[2021-10-05] MEDS: Famotidine 20 MG TAB PO SCH (08:37)
[2021-10-05] MEDS: Ferrous Sulfate 325 MG TAB PO SCH (08:37)
[2021-10-05] MEDS: Aspirin 81 mg Enteric Coated Tablet PO SCH (08:37)
[2021-10-05] MEDS: Lisinopril 2.5 MG TAB PO SCH (08:37)
[2021-10-05] MEDS: Enoxaparin Sodium 40 MG/0.4 ML SYRINGE SC SCH (08:37)
[2021-10-05] MEDS: Lantus 1000 UNITS/10 ML VIAL SC SCH (08:38)
== END 2021-10-05 15:00 | disposition home or self-care (01) | DRG 854 ==
LOC: ERS 09:16 → MSONC 11:06
PROVIDERS: ADMIT Internal Medicine; ATTEND Family Medicine
PROC: 0Y6P0Z1 Detachment at Right 1st Toe, High, Open Approach (ICD-10-PCS; principal; 2021-09-29)
PROC: 0J9Q0ZZ Drainage of Right Foot Subcutaneous Tissue and Fascia, Open Approach (ICD-10-PCS; 2021-09-29)
DX: A41.9 Sepsis, unspecified organism (principal); M86.8X7 Other osteomyelitis, ankle and foot; L03.115 Cellulitis of right lower limb; E87.1 Hypo-osmolality and hyponatremia; L02.611 Cutaneous abscess of right foot; Z20.822 Contact with and (suspected) exposure to COVID-19; E11.621 Type 2 diabetes mellitus with foot ulcer; F41.9 Anxiety disorder, unspecified; E11.40 Type 2 diabetes mellitus with diabetic neuropathy, unspecified; M65.871 Other synovitis and tenosynovitis, right ankle and foot; L97.519 Non-pressure chronic ulcer of other part of right foot with unspecified severity; D50.9 Iron deficiency anemia, unspecified; E11.628 Type 2 diabetes mellitus with other skin complications; F32.9 Major depressive disorder, single episode, unspecified; E13.69 Other specified diabetes mellitus with other specified complication; E87.6 Hypokalemia; Z79.82 Long term (current) use of aspirin; Z79.899 Other long term (current) drug therapy; Z79.84 Long term (current) use of oral hypoglycemic drugs; Z91.14 Patient's other noncompliance with medication regimen; Z90.89 Acquired absence of other organs
CPT/HCPCS: 36415; 36416; 80048; 80053; 80202; 81003; 81015; 82010; 83036; 83605; 83735; 85025; 85652; 86140; 87040; 87070; 87076; 87077; 87205; 88305; 88311; 96365; 96367; J0692; J0696; J1650; J1815; J1885; J2405; J2543; J2704; J3010; J3370; J3490; J7050; S0020; U0002

== ENCOUNTER 2022-11-05 07:47 | Emergency (ER) | payer SELFPAY | END 2022-11-05 10:00 | disposition home or self-care (01) | LOC: ERS 07:47 | DX: S90.31XA Contusion of right foot, initial encounter (principal); E11.9 Type 2 diabetes mellitus without complications; X58.XXXA Exposure to other specified factors, initial encounter | CPT/HCPCS: 99283 ==

== ENCOUNTER 2022-11-18 05:37 | Emergency (ER) | payer SELFPAY | END 2022-11-18 06:27 | disposition home or self-care (01) | LOC: ERS 05:37 | DX: S91.101A Unspecified open wound of right great toe without damage to nail, initial encounter (principal); E11.9 Type 2 diabetes mellitus without complications; X58.XXXA Exposure to other specified factors, initial encounter | CPT/HCPCS: 99283 ==

== ENCOUNTER 2023-01-19 07:44 | Emergency (ER) | payer SELFPAY ==
[2023-01-19 08:34] LABS: #Eosinphils 0.3 thou/uL (0.0-0.7); #Lymphocytes 1.7 thou/uL (1.20-3.40); #Monocytes 0.3 thou/uL (0.11-0.59); #Neutrophils 3.7 thou/uL (1.40-6.50); %Basophils 0.5 % (0.0-1.0); %Eosinophils 5.3 % (0.0-10.0); %Monocytes 5.5 % (0.0-10.0); %Neutrophils 60.7 % (42.0-75.0); Hemoglobin 10.9 g/dL (12.0-16.0); Mean Corpuscular HGB CONC 33.1 g/dL (32.0-36.0); Mean Corpuscular Hemoglobin 27.4 pg (27.0-31.0); Mean Corpuscular Volume 82.9 fl (78.0-98.0); Mean Platelet Volume 7.6 fL (7.4-10.4); Platelet Count 242 10x3/uL (130-400); RBC Distribution Width 14.5 % (11.5-14.5); Red Blood Cell (RBC) Count 3.99 mill/uL (4.20-5.40); White Blood Cell (WBC) Count 6.2 10x3/uL (4.8-10.8)
[2023-01-19] MEDS ORDERED: Clindamycin/D5W 900 mg/50 ml Premix Bag ONE (08:43)
[2023-01-19] MEDS ORDERED: metroNIDAZOLE 500 MG/100 ML BAG ONE (08:43)
[2023-01-19 09:00] LABS: ALT (SGPT) 7 U/L (8-55); AST (SGOT) 10 U/L (5-34); Albumin 4.1 g/dL (3.5-5.0); Alkaline Phosphatase 108 U/L (40-110); Anion Gap 13 mmol/L (10-20); BUN (Urea Nitrogen) 20 mg/dL (7.0-18.7); Bilirubin, Total 0.3 mg/dL (0.2-1.2); Calc. Creatinine Clearance 0 mL/min (70-130); Calcium 9.1 mg/dL (7.8-10.44); Carbon Dioxide 21 mmol/L (22-29); Chloride 107 mmol/L (98-107); Estimated GFR 91; Globulin 3.8 g/dL (2.4-3.5); Glucose 122 mg/dL (70-105); Protein, Total 7.9 g/dL (6.0-8.3); Sodium 137 mmol/L (136-145)
[2023-01-19] MEDS ORDERED: Bacitracin 1 PK ONE (10:40)
[2023-01-19 10:54] LABS: Bacteria/HPF None Seen HPF (None Seen); Bilirubin Negative (Negative); Blood, Urine 3+ (Negative); Clarity Clear (Clear); Glucose, Urine (Dipstick) 30 mg/dL (Negative); Ketone, Urine Negative (Negative); Leukocyte Negative Leu/uL (Negative); Nitrite Negative (Negative); Protein, Urine (Dipstick) Negative (Neg-Trace); RBC/HPF 0-3 HPF (0-3); Specific Gravity, Urine 1.012 (1.002-1.036); Squamous Epithelial 0-3 HPF (0-3); Urobilinogen Normal mg/dL (Less than 2); WBC/HPF 0-3 HPF (0-3); pH, Urine 6.5 (5.0-9.0)
== END 2023-01-19 11:44 | disposition home or self-care (01) ==
LOC: ERS 07:44
DX: L02.611 Cutaneous abscess of right foot (principal); L03.115 Cellulitis of right lower limb
CPT/HCPCS: 36415; 80053; 81003; 81015; 85025; 96365; 96366; 96375; J3490